=== PATIENT | female | born 1985 | race Caucasian/White ===

== ENCOUNTER 2020-03-01 07:33 | Outpatient (REF) | payer MEDICARE, MEDICAID, SELFPAY ==
[2020-03-01 08:48] LABS: Basophils Percent Auto 0.7 % (0-2); Eosinophils Absolute Auto 0.1 X10*3/uL (0.0-0.4); Hematocrit 36.7 % (37-47); Mean Corpuscular HGB Conc 32.7 g/dl (31.0-35.0); Mean Corpuscular Hemoglobin 34.2 pg (27.0-33.0); Mean Corpuscular Volume 104.6 fL (80-98); Red Blood Count 3.51 X10*6/uL (4.20-5.50)
[2020-03-01 08:50] LABS: Eosinophils Percent Auto 4.1 % (0-4); Imm Gran Abs Auto 0.01 X10*3/uL (0.00-0.03); Imm Gran Pct Auto 0.3 % (0.0-0.4); Lymphocytes Absolute Auto 1.3 X10*3/uL (1.2-4.9); Lymphocytes Percent Auto 43.6 % (20-40); Mean Platelet Volume 11.2 fL (9.4-12.3); Monocytes Absolute Auto 0.4 X10*3/uL (0.1-1.2); Monocytes Percent Auto 12.4 % (2-11); Neutrophils Absolute Auto 1.1 X10*3/uL (2.0-8.3); Neutrophils Percent Auto 38.9 % (45-73); Platelet Count 112 X10*3/uL (160-400); Red Cell Distribution Width 12.2 % (11.0-16.0); White Blood Count 2.9 X10*3/uL (4.8-10.8)
[2020-03-01 08:56] LABS: MANUAL DIFF FLAG NO
[2020-03-01 09:09] LABS: Alanine Aminotransferase 11 U/L (0-31); Albumin Level 3.9 g/dL (3.5-5.0); Alkaline Phosphatase 38 U/L (39-117); Anion Gap 11 (12-20); Aspartate Amino Transferase 13 U/L (5-31); Bilirubin Direct < 0.2 mg/dL (0.0-0.5); Bilirubin Total 0.2 mg/dL (0.0-1.0); Blood Urea Nitrogen 14 mg/dL (9-16); Calcium 8.5 mg/dL (8.4-10.2); Carbon Dioxide 23 mmol/L (22-29); Chloride 111 mmol/L (96-108); Estimated Glomerular Filt Rate > 60; Glucose Random 80 mg/dL (60-115); Potassium 3.9 mmol/l (3.3-5.1); Sodium 141 mmol/L (135-145); Total Protein 6.1 g/dL (6.5-8.0)
[2020-03-01 09:47] LABS: Valproate 67.4 mcg/mL (50.0-100.0)
[2020-03-04 23:47] LABS: Smooth Muscle Antibody <20 U (<20)
== END 2020-03-01 07:34 | disposition home or self-care (01) ==
LOC: HO.LAB 07:33
PROVIDERS: Visit Provider Psychiatry & Neurology Psychiatry
DX: F31.9 Bipolar disorder, unspecified (principal)
CPT/HCPCS: 36415; 80048; 80076; 80164; 85025; 86255

== ENCOUNTER 2020-03-18 09:15 | Outpatient (REF) | payer MEDICARE, MEDICAID, SELFPAY | END 2020-03-18 09:16 | disposition home or self-care (01) | LOC: HO.LAB 09:15 | PROVIDERS: Visit Provider Internal Medicine | DX: Z20.828 Contact with and (suspected) exposure to other viral communicable diseases (principal) | CPT/HCPCS: C9803; U0003 ==

== ENCOUNTER 2020-06-28 07:09 | Outpatient (REF) | payer MEDICARE, MEDICAID, SELFPAY ==
--- NOTE | ~2020-06-28 | XR_ITS ---
EXAMINATION: THORACIC AND LUMBAR SPINE X-RAY CLINICAL INFORMATION: Low back pain COMPARISON: None TECHNIQUE: 3 views of the lumbar spine and 2 views of the thoracic spine FINDINGS: Thoracic spine: There is mild curvature of the proximal thoracic spine to the left with apex at T4. Bone alignment is otherwise normal. No fracture or dislocation is seen. Disc spaces are normal. Paraspinal soft tissues are normal. Lumbar spine: There is 2 cm anterior subluxation of L5 with respect to S1. There is an L5 pars defect. There is disc space narrowing at L5-S1. Paraspinal soft tissues are unremarkable. XR/XR thoracic spine 2V IMPRESSION: Thoracic spine: Mild curvature of the proximal thoracic spine to the left. Lumbar spine: Spondylolysis and spondylolisthesis at L5-S1, grade 2. Disc space narrowing at L5-S1.
--- NOTE | ~2020-06-28 | XR_ITS ---
EXAMINATION: THORACIC AND LUMBAR SPINE X-RAY CLINICAL INFORMATION: Low back pain COMPARISON: None TECHNIQUE: 3 views of the lumbar spine and 2 views of the thoracic spine FINDINGS: Thoracic spine: There is mild curvature of the proximal thoracic spine to the left with apex at T4. Bone alignment is otherwise normal. No fracture or dislocation is seen. Disc spaces are normal. Paraspinal soft tissues are normal. Lumbar spine: There is 2 cm anterior subluxation of L5 with respect to S1. There is an L5 pars defect. There is disc space narrowing at L5-S1. Paraspinal soft tissues are unremarkable. XR/XR lumbar spine 2-3V IMPRESSION: Thoracic spine: Mild curvature of the proximal thoracic spine to the left. Lumbar spine: Spondylolysis and spondylolisthesis at L5-S1, grade 2. Disc space narrowing at L5-S1.
[2020-06-28 08:24] LABS: Hematocrit 39.1 % (37-47); Hemoglobin 12.4 g/dl (12.0-16.0); Mean Corpuscular HGB Conc 31.7 g/dl (31.0-35.0); Mean Corpuscular Hemoglobin 33.2 pg (27.0-33.0); Mean Corpuscular Volume 104.5 fL (80-98); Mean Platelet Volume 10.7 fL (9.4-12.3); Platelet Count 129 X10*3/uL (160-400); Red Blood Count 3.74 X10*6/uL (4.20-5.50); Red Cell Distribution Width 12.2 % (11.0-16.0); White Blood Count 3.2 X10*3/uL (4.8-10.8)
[2020-06-28 09:37] LABS: Alanine Aminotransferase 13 U/L (0-31); Albumin Level 4.2 g/dL (3.5-5.0); Alkaline Phosphatase 47 U/L (39-117); Anion Gap 11 (12-20); Aspartate Amino Transferase 15 U/L (5-31); Bilirubin Total 0.3 mg/dL (0.0-1.0); Blood Urea Nitrogen 15 mg/dL (9-16); Calcium 8.6 mg/dL (8.4-10.2); Carbon Dioxide 23 mmol/L (22-29); Chloride 113 mmol/L (96-108); Cholesterol 146 mg/dL; Estimated Glomerular Filt Rate > 60; Glucose Fasting 74 mg/dL (60-99); HDL Cholesterol 60 mg/dL; LDL Cholesterol Calculated 74 mg/dl; Potassium 4.1 mmol/L (3.3-5.1); Sodium 143 mmol/L (135-145); Total Protein 6.6 g/dL (6.5-8.0); Triglycerides 60 mg/dL
[2020-06-28 10:01] LABS: TSH reflex Free T4 1.89 uIU/mL (0.32-4.0)
== END 2020-06-28 07:10 | disposition home or self-care (01) ==
LOC: HO.LAB 07:09
PROVIDERS: PCP Physician Assistant; Visit Provider Physician Assistant
DX: I10 Essential (primary) hypertension (principal); M54.6 Pain in thoracic spine; M54.5 Low back pain; Z13.220 Encounter for screening for lipoid disorders; Z13.29 Encounter for screening for other suspected endocrine disorder; Z13.1 Encounter for screening for diabetes mellitus
CPT/HCPCS: 36415; 72070; 72100; 80053; 80061; 84443; 85027

== ENCOUNTER 2021-12-01 09:08 | Outpatient (REF) | payer MEDICARE, MEDICAID, SELFPAY ==
[2021-12-01 09:38] LABS: Hematocrit 40.7 % (37.0-47.0); Hemoglobin 13.4 g/dl (12.0-16.0); Mean Corpuscular HGB Conc 32.9 g/dl (31.0-35.0); Mean Corpuscular Hemoglobin 33.5 pg (27.0-33.0); Mean Corpuscular Volume 101.8 fL (80.0-98.0); Platelet Count 126 X10*3/uL (160-400); Red Cell Distribution Width 11.9 % (11.0-16.0); White Blood Count 3.3 X10*3/uL (4.8-10.8)
[2021-12-01 10:09] LABS: Alanine Aminotransferase 11 U/L (0-31); Albumin Level 3.9 g/dL (3.5-5.0); Alkaline Phosphatase 36 U/L (39-117); Anion Gap 13 (12-20); Aspartate Amino Transferase 15 U/L (5-31); Bilirubin Total 0.2 mg/dL (0.0-1.0); Blood Urea Nitrogen 14 mg/dL (9-16); Calcium 8.5 mg/dL (8.4-10.2); Carbon Dioxide 21 mmol/L (22-29); Chloride 113 mmol/L (96-108); Estimated Glomerular Filt Rate > 60; Glucose Fasting 80 mg/dL (60-99); Sodium 143 mmol/L (135-145); Total Protein 6.6 g/dL (6.5-8.0)
[2021-12-01 10:37] LABS: TSH reflex Free T4 2.15 uIU/mL (0.32-4.0)
== END 2021-12-01 09:09 | disposition home or self-care (01) ==
LOC: HO.LAB 09:08
PROVIDERS: PCP Physician Assistant; Visit Provider Physician Assistant
DX: Z13.29 Encounter for screening for other suspected endocrine disorder (principal)
CPT/HCPCS: 36415; 80053; 84443; 85027

== ENCOUNTER 2022-11-16 11:21 | Outpatient (AMB) | payer MEDICARE, MEDICAID, SELFPAY ==
[2022-11-16 11:28] VITALS: BP 90/56; PULSE 76; O2SAT 98; BMI 22.9
--- NOTE | 2022-11-16 11:28 | A.OFFPC_ITS ---
Vital Signs 11/16/22 11:28 Height 5 ft 3.78 in Weight 132 lb 8 oz BMI 22.9 BP 90/56 L Blood Pressure Location Lt brachial Position Sitting Pulse 76 Pulse Source Pulse Oximeter Pulse Oximetry (%) 98 Oxygen Delivery Method Room Air Intake Visit Reasons: PE Intake Note: Patient is here today for a physical. Consumer Safety Inspector Required: No Accompanied by: Self / Same As Patient Allergies No Known Allergies [No Known Allergies*] Allergy (Verified 11/16/22 11:41) Medication List - Last Reconciled 11/16/22 by Gorge Boykin PA-C divalproex ER 1,000 mg PO BEDTIME escitalopram oxalate 10 mg PO DAILY PRN lamotrigine 200 mg PO BID norethindrone-ethin estradiol 1-35 mg-mcg 1 tab PO DAILY pantoprazole 40 mg PO DAILY 90 days topiramate mg PO topiramate 200 mg PO BID trazodone 100 mg PO BEDTIME PRN ziprasidone HCl 60 mg PO BID Tobacco use date assessed: 11/16/22 Dental Screening Dental Screen Date: 11/16/22 Did you have a dental visit in the last 12 months?: Yes Did you have a dental problem in the last 6 months where you did not have access to dental care?: No Was dental information given to patient?: Patient has dentist HPI PE HPI Details Patient is a 36-year-old female here today for for annual physical. ? Pmhx? Sz disorder , Bipolar disorder, GERD, spondylosis of lumbar spine. .. learing disability: Continues to have forensic social worker coming to home. Mother is very supportive. .. Sz disorder: Sees [facility] Neurologist ( Dr de la torre),? has not had a seizure in 5 years. Continues on multiple antiseizure medications. [facility] we like PCP now to prescriber seizure medications and continue following divalproex level. .. Bipolar disorder: Is seeing a therapist Weekly, was seeing Dr Webb in [place]. Family reports patient has mood has been very stable with mood stabilization medication. .. 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 .. Vaccine:? Up-to-date with tetanus, UTD with COVID Vaccine.? ?Declines flu vaccine [facility] Medical History Bunion of great toe of left foot Family History Mother Lung cancer Social History Housing: House Alcohol intake: never Patient Tobacco Use Status: Never used Tobacco e-Cigarette/Vaping Use: Never Used service: No Current occupational status: disabled Current occupation: [employer] Cognitive needs: No Hearing needs: No Vision needs: Yes Questionnaire PHQ-9 Over the last 2 weeks, how often have you been bothered by any of the following problems? 1. Little interest or pleasure in doing things: not at all 2. Feeling down, depressed, or hopeless: not at all 3. Trouble falling or staying asleep, or sleeping too much: not at all 4. Feeling tired or having little energy: not at all 5. Poor appetite or overeating: not at all 6. Feeling bad about yourself - or that you are a failure or have let yourself or your family down: not at all 7. Trouble concentrating on things, such as reading the newspaper or watching television: not at all 8. Moving or speaking so slowly that other people could have noticed. Or the opposite - being so fidgety or restless that you have been moving around a lot more than usual: not at all 9. Thoughts that you would be better off or of hurting yourself in some way: not at all Total score: 0 Depression Screening Interpretation: Negative 11067 - PHQ-9 Billing: Yes Source: Developed by Drs. Abel Roman, Rhona Villa, Moe Orozco and colleagues, with an educational sharda from [facility]. Thrive Questionnaire Date Thrive assessed: 11/16/22 I am a: Patient What is your living situation today?: I have a steady place to live Within the past 12 months, did the food you bought not last and you didn't have the money to get more?: Never true Within the past 12 months, did you worry whether your food would run out before you got money to buy more?: Never true Do you have trouble paying for medicines?: No Do you have trouble getting transportation to medical appointments?: No Do you have trouble paying your heating and electricity bill?: No Do you have trouble taking care of your child, family member or friend?: No Do you have trouble with day-to-day activities such as bathing, preparing meals, shopping, managing finances, etc.?: No Are you currently unemployed and looking for a job?: No Are you interested in more education?: No Please select the resources that you would like help with: None Currently or been in a relationship where the following occur: no concerns reported AUDIT C Alcohol Use Questionnaire (AUDIT-C) 1. How often do you have a drink containing alcohol?: Never 3. How often do you have six or more drinks on one occasion?: Never Total Score: 0 AHSAN-7 AMB Questionnaire AHSAN-7 Date AHSAN - 7 assessed: 11/16/22 Feeling nervous, anxious, or on edge: 0 = Not at all Not being able to stop or control worryin = Not at all Worrying too much about different things: 0 = Not at all Trouble relaxin = Not at all Being so restless that it is hard to sit still: 0 = Not at all Becoming easily annoyed or irritable: 0 = Not at all Feeling afraid as if something awful might happen: 0 = Not at all Total AHSAN-7 score (0-4 normal; 5-9 mild; 10-14 moderate; 15-21 severe): 0 Source: Developed by Drs. Abel Roman, Rhona Villa, Moe Orozco and colleagues, with an educational sharda from [facility]. AHSAN-7 Assessment Billing AHSAN-7 Assessment Tool: AHSAN-7 Assessment 45074 Review of Systems Const Denies body aches, Denies chills, Denies excessive sweating, Denies fatigue, Denies fever(s) and Denies headache(s) Eyes Denies blurry vision ENT Denies dysphagia, Denies vertigo, Denies dizziness, Denies headache(s), Denies hearing loss and Denies tinnitus Card Denies chest pain, Denies chest pain with activity, Denies syncope, Denies irregular heart rhythm and Denies dyspnea Resp Denies chest congestion, Denies cough, Denies hemoptysis, Denies dyspnea and Denies wheezing GI Denies abdominal pain, Denies melena, Denies hematochezia, Denies coffee ground emesis, Denies dysphagia, Denies diarrhea, Denies nausea and Denies vomiting Denies urinary frequency, Denies dysuria, Denies urinary hesitancy and Denies urinary urgency Musc Denies arthralgias, Denies limited range of motion, Denies muscle cramps and Denies muscle weakness Skin/Breast Denies rash and Denies skin ulcer Neuro Denies Abnormal speech present, Denies confusion, Denies vertigo, Denies dizziness, Denies syncope, Denies headache(s), Denies memory loss and Denies seizure-like activity Psych Denies anxiety, Denies confusion, Denies depression, Denies memory loss, Denies panic attacks and Denies paranoia Endo Denies excessive sweating, Denies fatigue, Denies flushing, Denies polydipsia and Denies polyuria Aller/Immun Denies wheezing Physical exam (Primary Care) Vital Signs: Last Vital Signs Pulse 76 11/16/22 11:28 BP 90/56 L 11/16/22 11:28 Pulse Ox 98 11/16/22 11:28 Oxygen Delivery Method Room Air 11/16/22 11:28 BMI result Body Mass Index 22.9 Tobacco/Smoking Status: Tobacco use Status Tobacco use date assessed 11/16/22 11/16/22 11:30 Patient Tobacco Use Status Never used Tobacco 11/16/22 11:30 e-Cigarette/Vaping Use Never Used 11/16/22 11:30 PHQ-9: PHQ-9 Score PHQ-9: Total score 0 11/16/22 11:46 Depression Screening Interpretation: Negative Thrive Assessment: Date of Thrive Assessment Date Thrive assessed 11/16/22 11/16/22 11:40 Currently or been in a relationship where the following occur: no concerns reported Const General: cooperative, comfortable, no acute distress, alert and awake; No confusion Orientation/consciousness: oriented to person, oriented to place, patient oriented x3 and No confusion HENMT Head: Yes normocephalic Ears: external ears normal and TM's normal bilaterally Face and sinus: No sinus tenderness Mouth: Normal oral and palatal mucosa present and tongue normal Teeth and gingiva: dentition normal and gingiva normal Throat: Yes posterior oropharynx normal, Yes tonsils normal and Yes uvula midli ne Eyes Conjunctivae: conjunctivae normal Sclerae: sclerae normal Pupils: Equal, round and reactive pupils present EOM: EOMs intact bilaterally Direct Ophthalmoscopy: No no photophobia Neck Neck: Yes no lymphadenopathy, No tender and Yes no JVD Thyroid: Thyroid normal Carotids: no bruits Chest Chest palpation & inspection: no tenderness Resp Effort & Inspection: normal respiratory effort, no audible wheezes, not labored and no stridor Auscultation: no crackles, no rales, no rhonchi and no wheezes Cardio Jugular venous distension: no JVD Rate: regular rate, not bradycardic and not tachycardic Rhythm: regular rhythm Bruits: no carotid bruits Peripheral pulses: Peripheral pulses 2+ throughout GI Inspection: Yes normal to inspection, No abdominal wall ecchymosis and No visible herniation Palpation (GI): Soft to palpation, nontender, no guarding, not rigid and No hepatosplenomegaly present Auscultation: normoactive bowel sounds General: Yes no CVA tenderness Back/Spine/Pelvis Back: no CVA tenderness and No back tenderness Cervical Spine: cervical ROM normal Thoracic/Lumbar Spine: thoracic and lumbar spine normal to inspection, straight leg raise negative bilaterally, No thoraco-lumbar ROM limited and No lumbar spinal tenderness Skin Lesions: no lesions Rashes: no rashes Wounds: no wounds Neuro General: oriented to person, oriented to place, patient oriented x3, CN's II-XI intact bilaterally and No confusion Cranial nerves: Yes Equal, round and reactive pupils present and Yes Normal accommodation reflex present Cognition (Neuro): normal cognition Speech: No Abnormal speech present Gait exam (Neuro): Normal gait present Motor exam (neuro): 5/5 motor strength present throughout Extrem Right upper extremity: full ROM; no cyanosis Left upper extremity: full ROM; no cyanosis Right lower extremity: no edema Left lower extremity: no edema Psych Appearance: grossly normal Mental Status: mental status grossly normal Affect: normal affect Attitude: cooperative Thought process: Normal thought process present Assessment and Plan Assessment & Plan (1) Annual physical exam: Code(s): Z00.00 - Encounter for general adult medical examination without abnormal findings (2) Seizure disorder: Code(s): G40.909 - Epilepsy, unspecified, not intractable, without status epilepticus Plan: Patient followed by a neurologist though has not had seizure over 5 years. Neurology not once PCP to hand seizure medication. (3) Bipolar disorder: Code(s): F31.9 - Bipolar disorder, unspecified Qualifiers: Active/Remission status: currently active Current bipolar episode type: mixed Current episode severity: moderate Qualified Code(s): F31.62 - Bipolar disorder, current episode mixed, moderate Plan: Patient continues to see a psychiatrist who manages her SSRI therapy. Also on mood stabilization with lamotrigine and divalproex. Mother reports her mood has been stable. (4) Lumbar spine pain: Code(s): M54.5 - Low back pain Plan: As seen on lower back specialist and was told she has muscle weakness in her lower back. Has been doing physical therapy at home with some success. (5) Learning disability: Code(s): F81.9 - Developmental disorder of scholastic skills, unspecified Plan: As up as above patient lives at home with mother. Social workers come to the to work with patient. Also has physical therapy whom works a patient at home as well. Orders: Orders Comprehensive [place]. Panel Fast Today Z13.1 - Encounter for screening for diabetes mellitus Complete Blood Count no Diff Today G40.909 - Epilepsy, unspecified, not intractable, without status epilepticus Valproate Today G40.909 - Epilepsy, unspecified, not intractable, without status epilepticus Medications: Changed From ziprasidone HCl 60 mg PO BID F31.62 - Bipolar disorder, current episode mixed, moderate To ziprasidone HCl 60 mg PO BID 90 days 180 caps 2RF F31.62 - Bipolar disorder, current episode mixed, moderate From topiramate PO G40.909 - Epilepsy, unspecified, not intractable, without status epilepticus To topiramate 75 mg (3 x 25 mg) PO BID 90 days 540 tabs 2RF G40.909 - Epilepsy, unspecified, not intractable, without status epilepticus From topiramate 200 mg PO BID G40.909 - Epilepsy, unspecified, not intractable, without status epilepticus To topiramate 200 mg PO BID 90 days 180 tabs 2RF G40.909 - Epilepsy, unspecified, not intractable, without status epilepticus From lamotrigine 200 mg PO BID G40.909 - Epilepsy, unspecified, not intractable, without status epilepticus To lamotrigine 200 mg PO BID 90 days 180 tabs 2RF G40.909 - Epilepsy, unspecified, not intractable, without status epilepticus From divalproex ER 1,000 mg PO BEDTIME G40.909 - Epilepsy, unspecified, not intractable, without status epilepticus To divalproex ER 1,000 mg (2 x 500 mg) PO BEDTIME 90 days 180 tabs 2RF G40.909 - Epilepsy, unspecified, not intractable, without status epilepticus Coding Level of Care Code Est Pt Prev Care [id number]([id number]) Diagnoses Annual physical exam Z00.00 Seizure disorder G40.909 Bipolar disorder F31.62 Active/Remission status: currently active Current bipolar episode type: mixed Current episode severity: moderate Lumbar spine pain M54.5 Learning disability F81.9 Additional Codes AHSAN-7 Assessment Billing - AHSAN-7 Assessment Tool: HASAN-7 Assessment [id number] ([id number])
== END 2022-11-16 12:03 | disposition home or self-care (01) ==
PROVIDERS: Visit Provider Physician Assistant
DX: Z00.00 Encounter for general adult medical examination without abnormal findings (principal); G40.909 Epilepsy, unspecified, not intractable, without status epilepticus; F31.62 Bipolar disorder, current episode mixed, moderate; M54.50 Low back pain, unspecified; F81.9 Developmental disorder of scholastic skills, unspecified
CPT/HCPCS: 99395

== ENCOUNTER 2023-04-19 08:23 | Outpatient (REF) | payer MEDICARE, MEDICAID, SELFPAY ==
[2023-04-19 08:49] LABS: Hematocrit 38.3 % (37.0-47.0); Hemoglobin 12.5 g/dl (12.0-16.0); Mean Corpuscular HGB Conc 32.6 g/dl (31.0-35.0); Mean Corpuscular Hemoglobin 33.3 pg (27.0-33.0); Mean Corpuscular Volume 102.1 fL (80.0-98.0); Platelet Count 143 X10*3/uL (160-400); Red Blood Count 3.75 X10*6/uL (4.20-5.50); Red Cell Distribution Width 13.2 % (11.0-16.0); White Blood Count 3.9 X10*3/uL (4.8-10.8)
[2023-04-19 09:21] LABS: Valproate 61.7 mcg/mL (50.0-100.0)
[2023-04-19 09:26] LABS: Alanine Aminotransferase 9 U/L (0-31); Albumin Level 3.8 g/dL (3.5-5.0); Alkaline Phosphatase 42 U/L (39-117); Anion Gap 11 (12-20); Aspartate Amino Transferase 13 U/L (5-31); Bilirubin Total 0.3 mg/dL (0.0-1.0); Blood Urea Nitrogen 15 mg/dL (9-16); Calcium 8.6 mg/dL (8.4-10.2); Carbon Dioxide 21 mmol/L (22-29); Chloride 114 mmol/L (96-108); Estimated Glomerular Filt Rate > 60; Glucose Fasting 76 mg/dL (60-99); Sodium 142 mmol/L (135-145); Total Protein 6.4 g/dL (6.5-8.0)
== END 2023-04-19 08:24 | disposition home or self-care (01) ==
LOC: HO.LAB 08:23
PROVIDERS: PCP Physician Assistant; Visit Provider Physician Assistant
DX: G40.909 Epilepsy, unspecified, not intractable, without status epilepticus (principal); Z13.1 Encounter for screening for diabetes mellitus
CPT/HCPCS: 36415; 80053; 80164; 85027

== ENCOUNTER 2023-11-27 09:05 | Outpatient (AMB) | payer MEDICARE, MEDICAID, SELFPAY ==
[2023-11-27 09:06] VITALS: BP 82/52; PULSE 75; O2SAT 100; BMI 25.0
--- NOTE | 2023-11-27 09:06 | MHC.PC.OV ---
Vital Signs 11/27/23 09:06 Height 5 ft 3 in Weight 141 lb BMI 25.0 BP 82/52 L Blood Pressure Location Lt brachial Position Sitting Pulse 75 Pulse Source Pulse Oximeter Pulse Oximetry (%) 100 Oxygen Delivery Method Room Air Intake Visit Reasons: Annual Intake Note: Patient is here today for a physical. Eight Arm Operator Required: No Accompanied by: Mother Allergies No Known Allergies [No Known Allergies*] Allergy (Verified 11/27/23 09:47) Medication List - Last Reconciled 11/27/23 by Gorge Boykin PA-C divalproex ER 1,000 mg (2 x 500 mg) PO BEDTIME 90 days escitalopram oxalate 10 mg PO DAILY PRN lamotrigine 200 mg PO BID 90 days norethindrone-ethin estradiol 1-35 mg-mcg 1 tab PO DAILY pantoprazole 40 mg PO DAILY 90 days topiramate 75 mg (3 x 25 mg) PO BID 90 days topiramate 200 mg PO BID 90 days trazodone 100 mg PO BEDTIME PRN ziprasidone HCl 60 mg PO BID 90 days Tobacco use date assessed: 11/27/23 Dental Screening Dental Screen Date: 11/27/23 Did you have a dental visit in the last 12 months?: Yes Did you have a dental problem in the last 6 months where you did not have access to dental care?: No Was dental information given to patient?: Patient has dentist HPI Annual HPI Details Patient is a 37-year-old female here today for for annual physical. ? Pmhx? Sz disorder , Bipolar disorder, GERD, spondylosis of lumbar spine. .. learing disability: Continues to have social welfare research worker coming to home. Mother is very supportive. .. Lumbar spine muscular issue-- > Has seen back specialist past whom recommend physical therapy as her back issue was more muscular. Has not been able to be compliant with physical therapy. Unfortunately lives a sedentary lifestyle. She is willing to see new back specialist for possible trigger point injection to help reduce her pain. .. Sz disorder: Sees [facility] Neurologist ( Dr de la torre),? has not had a seizure in 5 years. Continues on multiple antiseizure medications. [facility] Neurology we like PCP now to prescriber seizure medications and continue following divalproex level. .. Bipolar disorder: Is seeing a therapist Weekly, was seeing Dr Dominguez in [place]. Family reports patient has mood has been very stable with mood stabilization medication. .. PSS DELIVERY PROFESSIONAL: sees PSS DELIVERY PROFESSIONAL at [place] , has gotten PAP last summer. .. Vaccine:? Up-to-date with tetanus, UTD with COVID Vaccine.? ?Declines flu vaccine [facility] Medical History Bunion of great toe of left foot Family History Mother Lung cancer Social History Housing: House Alcohol intake: never Patient Tobacco Use Status: Never used Tobacco e-Cigarette/Vaping Use: Never Used service: No Current occupational status: disabled Current occupation: [employer] Cognitive needs: No Hearing needs: No Vision needs: Yes Questionnaire PHQ-9 Over the last 2 weeks, how often have you been bothered by any of the following problems? 1. Little interest or pleasure in doing things: not at all 2. Feeling down, depressed, or hopeless: not at all 3. Trouble falling or staying asleep, or sleeping too much: not at all 4. Feeling tired or having little energy: not at all 5. Poor appetite or overeating: not at all 6. Feeling bad about yourself - or that you are a failure or have let yourself or your family down: not at all 7. Trouble concentrating on things, such as reading the newspaper or watching television: not at all 8. Moving or speaking so slowly that other people could have noticed. Or the opposite - being so fidgety or restless that you have been moving around a lot more than usual: not at all 9. Thoughts that you would be better off or of hurting yourself in some way: not at all Total score: 0 Depression Screening Interpretation: Negative Depression Screening Done: Yes 48832 - PHQ-9 Billing: Yes Source: Developed by Drs. Abel Roman, Rhona Villa, Moe Orozco and colleagues, with an educational sharda from [employer]. Thrive Questionnaire Date Thrive assessed: 11/27/23 I am a: Parent/Caregiver What is your living situation today?: I have a steady place to live Within the past 12 months, did the food you bought not last and you didn't have the money to get more?: Never true Within the past 12 months, did you worry whether your food would run out before you got money to buy more?: Never true Do you have trouble paying for medicines?: No Do you have trouble getting transportation to medical appointments?: No Do you have trouble paying your heating and electricity bill?: No Do you have trouble taking care of your child, family member or friend?: No Do you have trouble with day-to-day activities such as bathing, preparing meals, shopping, managing finances, etc.?: Yes Are you currently unemployed and looking for a job?: I choose not to answer this question Are you interested in more education?: No Please select the resources that you would like help with: None Currently or been in a relationship where the following occur: No concerns reported THRIVE Score: 0 AUDIT C Alcohol Use Questionnaire (AUDIT-C) 1. How often do you have a drink containing alcohol?: Never 3. How often do you have six or more drinks on one occasion?: Never Total Score: 0 AHSAN-7 AMB Questionnaire AHSAN-7 Date AHSAN - 7 assessed: 11/27/23 Feeling nervous, anxious, or on edge: 0 = Not at all Not being able to stop or control worryin = Not at all Worrying too much about different things: 0 = Not at all Trouble relaxin = Not at all Being so restless that it is hard to sit still: 0 = Not at all Becoming easily annoyed or irritable: 0 = Not at all Feeling afraid as if something awful might happen: 0 = Not at all Total AHSAN-7 score (0-4 normal; 5-9 mild; 10-14 moderate; 15-21 severe): 0 Source: Developed by Drs. Abel Roman, Rhona Villa, Moe Orozco and colleagues, with an educational sharda from [employer]. AHSAN-7 Assessment Billing AHSAN-7 Assessment Tool: AHSAN-7 Assessment 35502 Review of Systems Const Denies body aches, Denies chills, Denies excessive sweating, Denies fatigue, Denies fever(s) and Denies headache(s) Eyes Denies blurry vision ENT Denies dysphagia, Denies vertigo, Denies dizziness, Denies headache(s), Denies hearing loss and Denies tinnitus Card Denies chest pain, Denies chest pain with activity, Denies syncope, Denies irregular heart rhythm and Denies dyspnea Resp Denies chest congestion, Denies cough, Denies hemoptysis, Denies dyspnea and Denies wheezing GI Denies abdominal pain, Denies melena, Denies hematochezia, Denies coffee ground emesis, Denies dysphagia, Denies diarrhea, Denies nausea and Denies vomiting Denies urinary frequency, Denies dysuria, Denies urinary hesitancy and Denies urinary urgency Musc Denies arthralgias, Denies limited range of motion, Denies muscle cramps and Denies muscle weakness Skin/Breast Denies rash and Denies skin ulcer Neuro Denies Abnormal speech present, Denies confusion, Denies vertigo, Denies dizziness, Denies syncope, Denies headache(s), Denies memory loss and Denies seizure-like activity Psych Denies anxiety, Denies confusion, Denies depression, Denies memory loss, Denies panic attacks and Denies paranoia Endo Denies excessive sweating, Denies fatigue, Denies flushing, Denies polydipsia and Denies polyuria Aller/Immun Denies wheezing Physical exam (Primary Care) Vital Signs: Last Vital Signs Pulse 75 11/27/23 09:06 BP 82/52 L 11/27/23 09:06 Pulse Ox 100 11/27/23 09:06 Oxygen Delivery Method Room Air 11/27/23 09:06 BMI result Body Mass Index 25.0 Tobacco/Smoking Status: Tobacco use Status Tobacco use date assessed 11/27/23 11/27/23 09:18 Patient Tobacco Use Status Never used Tobacco 11/27/23 09:06 e-Cigarette/Vaping Use Never Used 11/27/23 09:06 PHQ-9: PHQ-9 Score PHQ-9: Total score 0 11/27/23 09:51 Depression Screening Interpretation: Negative Thrive Assessment: Date of Thrive Assessment Date Thrive assessed 11/27/23 11/27/23 09:18 Currently or been in a relationship where the following occur: No concerns reported Const General: cooperative, comfortable, no acute distress, alert and awake; No confusion Orientation/consciousness: oriented to person, oriented to place, patient oriented x3 and No confusion HENMT Head: Yes normocephalic Ears: external ears normal and TM's normal bilaterally Face and sinus: No sinus tenderness Mouth: Normal oral and palatal mucosa present and tongue normal Teeth and gingiva: dentition normal and gingiva normal Throat: Yes posterior oropharynx normal, Yes tonsils normal and Yes uvula midline Eyes Conjunctivae: conjunctivae normal Sclerae: sclerae normal Pupils: Equal, round and reactive pupils present EOM: EOMs intact bilaterally Direct Ophthalmoscopy: No no photophobia Neck Neck: Yes no lymphadenopathy, No tender and Yes no JVD Thyroid: Thyroid normal Carotids: no bruits Chest Chest palpation & inspection: no tenderness Resp Effort & Inspection: normal respiratory effort, no audible wheezes, not labored and no stridor Auscultation: no crackles, no rales, no rhonchi and no wheezes Cardio Jugular venous distension: no JVD Rate: regular rate, not bradycardic and not tachycardic Rhythm: regular rhythm Bruits: no carotid bruits Peripheral pulses: Peripheral pulses 2+ throughout GI Inspection: Yes normal to inspection, No abdominal wall ecchymosis and No visible herniation Palpation (GI): Soft to palpation, nontender, no guarding, not rigid and No hepatosplenomegaly present Auscultation: normoactive bowel sounds General: Yes no CVA tenderness Back/Spine/Pelvis Other: LIMITED RANGE OF MOTION OF THE LUMBAR SPINE DUE TO PAIN AND STIFFNESS. Back: no CVA tenderness and No back tenderness Cervical Spine: cervical ROM normal Thoracic/Lumbar Spine: thoracic and lumbar spine normal to inspection, straight leg raise negative bilaterally, No thoraco-lumbar ROM limited and No lumbar spinal tenderness Skin Lesions: no lesions Rashes: no rashes Wounds: no wounds Neuro General: oriented to person, oriented to place, patient oriented x3, CN's II-XI intact bilaterally and No confusion Cranial nerves: Yes Equal, round and reactive pupils present and Yes Normal accommodation reflex present Cognition (Neuro): normal cognition Speech: No Abnormal speech present Gait exam (Neuro): Normal gait present Motor exam (neuro): 5/5 motor strength present throughout Extrem Right upper extremity: full ROM; no cyanosis Left upper extremity: full ROM; no cyanosis Right lower extremity: no edema Left lower extremity: no edema Psych Appearance: grossly normal Mental Status: mental status grossly normal Affect: normal affect Attitude: cooperative Thought process: Normal thought process present Assessment and Plan Assessment & Plan (1) Annual physical exam: Code(s): Z00.00 - Encounter for general adult medical examination without abnormal findings (2) Seizure disorder: Code(s): G40.909 - Epilepsy, unspecified, not intractable, without status epilepticus Plan: Patient followed by a neurologist though has not had seizure over 5 years. Neurology not would like PCP to hand seizure medication. Noted weight gain over the last year Will recheck Lamictal and divalproex levels. (3) Bipolar disorder: Code(s): F31.9 - Bipolar disorder, unspecified Qualifiers: Active/Remission status: currently active Current bipolar episode type: mixed Current episode severity: moderate Qualified Code(s): F31.62 - Bipolar disorder, current episode mixed, moderate Plan: Patient continues to see a psychiatrist who manages her SSRI therapy. Also on mood stabilization with lamotrigine and divalproex. Mother reports her mood has been stable. (4) Lumbar spine pain: Code(s): M54.5 - Low back pain Plan: As seen on lower back specialist and was told she has muscle weakness in her lower back. Has not been too compliant with physical therapy. Unfortunately lives a sedentary lifestyle. She is willing to try to see a back specialist again to inquire about in injection to reduce her pain. (5) Learning disability: Code(s): F81.9 - Developmental disorder of scholastic skills, unspecified Plan: As up as above patient lives at home with mother. Social workers come to the to work with patient. Also has physical therapy whom works a patient at home as well. Orders: Orders Valproate 11/27/23 G40.909 - Epilepsy, unspecified, not intractable, without status epilepticus Complete Blood Count no Diff 11/27/23 Z13.1 - Encounter for screening for diabetes mellitus Lamotrigine Lamictal 11/27/23 G40.909 - Epilepsy, unspecified, not intractable, without status epilepticus Comprehensive [place]. Panel Fast 11/27/23 Z13.1 - Encounter for screening for diabetes mellitus Referrals Physiatry Referral M54.5 - Low back pain Coding Level of Care Code Est Pt Prev Care 18-39y(18007) Diagnoses Annual physical exam Z00.00 Seizure disorder G40.909 Bipolar disorder, current episode mixed, moderate F31.62 Active/Remission status: currently active Current bipolar episode type: mixed Current episode severity: moderate Lumbar spine pain M54.5 Learning disability F81.9 Additional Codes AHSAN-7 Assessment Billing - AHSAN-7 Assessment Tool: AHSAN-7 Assessment 46991 ([id number])
== END 2023-11-27 10:09 | disposition home or self-care (01) ==
PROVIDERS: PCP Physician Assistant; Visit Provider Physician Assistant
DX: Z00.00 Encounter for general adult medical examination without abnormal findings (principal); G40.909 Epilepsy, unspecified, not intractable, without status epilepticus; F31.62 Bipolar disorder, current episode mixed, moderate; M54.50 Low back pain, unspecified; F81.9 Developmental disorder of scholastic skills, unspecified
CPT/HCPCS: 99395

== ENCOUNTER 2024-01-01 07:26 | Outpatient (REF) | payer MEDICARE, MEDICAID, SELFPAY ==
[2024-01-01 09:04] LABS: Valproate 44.7 mcg/mL (50.0-100.0)
[2024-01-01 09:12] LABS: Alanine Aminotransferase 11 U/L (0-31); Alkaline Phosphatase 51 U/L (39-117); Anion Gap 11 (12-20); Aspartate Amino Transferase 13 U/L (5-31); Bilirubin Direct < 0.2 mg/dL (0.0-0.5); Bilirubin Total 0.2 mg/dL (0.0-1.0); Blood Urea Nitrogen 18 mg/dL (9-16); Calcium 8.4 mg/dL (8.4-10.2); Carbon Dioxide 22 mmol/L (22-29); Chloride 116 mmol/L (96-108); Estimated Glomerular Filt Rate > 60; Glucose Random 87 mg/dL (60-115); Potassium 3.8 mmol/L (3.3-5.1); Sodium 145 mmol/L (135-145); Total Protein 6.5 g/dL (6.5-8.0)
== END 2024-01-01 07:27 | disposition home or self-care (01) ==
LOC: HO.LAB 07:26
PROVIDERS: PCP Physician Assistant; Visit Provider Physician Assistant
DX: F31.9 Bipolar disorder, unspecified (principal); F73 Profound intellectual disabilities; Z79.899 Other long term (current) drug therapy
CPT/HCPCS: 36415; 80053; 80164; 82248

== ENCOUNTER 2024-03-03 07:33 | Outpatient (REF) | payer MEDICARE, MEDICAID, SELFPAY ==
--- NOTE | ~2024-03-03 | XR_ITS ---
EXAMINATION: X-RAY LUMBAR SPINE CLINICAL INDICATION: Evaluate for instability. COMPARISON: 06/28/2020 TECHNIQUE: 6 views of the lumbar spine FINDINGS: Dextroscoliosis of the lumbar spine. Degenerative changes of bilateral sacroiliac joints. Facet arthritis at the lumbosacral junction. Grade 3 anterolisthesis of L5 on S1 reduces with flexion and inceases with extension. Redemonstration of L5 pars defects. Loss of disc space height at L5-S1. XR/XR lumbar spine 4V min IMPRESSION: Grade 2 anterolisthesis of L5 on S1 persists with flexion and extension. Redemonstration of L5 pars defect. Loss of disc space height at L5-S1. Electronically signed by: Deedee Amin MD 03/03/2024 10:14 AM CESAR GARCIA
== END 2024-03-03 07:34 | disposition home or self-care (01) ==
LOC: HO.XRAY 07:33
PROVIDERS: PCP Physician Assistant; Visit Provider Physical Medicine & Rehabilitation
DX: M47.816 Spondylosis without myelopathy or radiculopathy, lumbar region (principal)
CPT/HCPCS: 72110

== ENCOUNTER 2024-04-27 19:10 | Outpatient (REF) | payer MEDICARE, MEDICAID, SELFPAY ==
--- NOTE | ~2024-04-27 | MR_ITS ---
CLINICAL HISTORY: PAIN MRI lumbar spine without contrast Comparison: None Findings: 1.2 cm anterolisthesis L5-X0lchspyw definite canal stenosis. No axial images were obtained parallel to disc. Severe bilateral neural foraminal narrowing noted. Multilevel mild facet hypertrophy. No other significant disc disease or canal stenosis. Bony alignment normal above the L5 level. No acute bony signal abnormalities. Incidental sacral perineural cysts. Impression: L5-S1 anterolisthesis with severe bilateral neural foraminal narrowing This document has been electronically signed by: Sahil Julian MD on 04/27/2024 20:52:41
== END 2024-04-27 19:11 | disposition home or self-care (01) ==
LOC: HO.MRI 19:10
PROVIDERS: PCP Physician Assistant; Visit Provider Student in an Organized Health Care Education/Training Program
DX: M43.17 Spondylolisthesis, lumbosacral region (principal)
CPT/HCPCS: 72148

== ENCOUNTER → 2024-04-27 19:18 | Outpatient (BNV) | payer MEDICARE, MEDICAID, SELFPAY | PROVIDERS: PCP Physician Assistant; Visit Provider Radiology Diagnostic Radiology | DX: M54.50 Low back pain, unspecified (principal) | CPT/HCPCS: 72148 ==

== ENCOUNTER 2024-05-09 09:27 | Outpatient (AMB) | payer MEDICARE, MEDICAID, SELFPAY ==
--- OUTSIDE RECORDS SUMMARY | 2024-05-09 09:52 | XMS_ITS | Encounter Summary ---
Author Organization [facility] Address [address] [place] [address] Care Team Providers Care Crime Data Specialist Name Role Phone Destiny Gar MD Primary Care Provider Unavailable Encounter Details Date Type Department Care Team Description 07/02/2012 Medical Anthropologist Report Medical Records [address] [place] [address] Jennifer Romo NP Social History Tobacco Use Types Packs/Day Years Used Date Smoking Tobacco: Never Smokeless Tobacco: Never Alcohol Use Standard Drinks/Week Comments No 0 (1 standard drink = 0.6 oz pur e alcohol) Sex Assigned at Date Recorded Not on file Job Start Date Occupation Industry Not on file Not on file Not on file documented as of this encounter Plan of Treatment Not on file documented as of this encounter Visit Diagnoses Not on filedocumented in this encounter Care Teams Crime Data Specialist Relationship Specialty Start Date End Date Destiny Gar MD PCP - General 01/21/07 documented as of this encounter
--- OUTSIDE RECORDS SUMMARY | 2024-05-09 09:52 | XMS_ITS | Encounter Summary ---
Author Organization [facility] Address [address] [place] [address] Care Team Providers Care Dental Hygiene Teacher Name Role Phone Martha-Destiny Reece MD Primary Care Provider Unavailable Reason for Visit * Reason Onset Date Comments refill request 05/18/2017 Encounter Details Date Type Department Care Team Description 05/18/2017 Refill OBGYN - [place] [address] [place] [address] Janelle Day MD refill request Social History Tobacco Use Types Packs/Day Years Used Date Smoking Tobacco: Never Smokeless Tobacco: Never Alcohol Use Standard Drinks/Week Comments No 0 (1 standard drink = 0.6 oz pur e alcohol) Sex Assigned at Date Recorded Not on file Job Start Date Occupation Industry Not on file Not on file Not on file documented as of this encounter Miscellaneous Notes * Telephone Encounter - Angeles Cristobal - 05/18/2017 9:48 AM EST WHEN WAS THE PATIENTS LAST ANNUAL DRIER ATTENDANT EXAM? 07/19/2016 Does patient have an upcoming appointment? No (THE MEDICATION REQUESTED IS ON THE MED LIST ABOVE) Did you check the Pharmacy information above?: YES Indicate how soon the patient needs the script: BY THE END OF THE DAY Patient would like script to be: E-PRESCRIBED/FAXED TO PHARMACY Is the doctor here today?: NO Can the message wait until the doctor returns?: NO Has the patient been told that the prescription will not be filled until the end of the day? NO [place] / [place] / Product Type: MEDICARE [id number] documented in this encounter Plan of Treatment Not on file documented as of this encounter Visit Diagnoses Not on filedocumented in this encounter Care Teams Dental Hygiene Teacher Relationship Specialty Start Date End Date Martha-Destiny Reece MD PCP - General 01/21/07 documented as of this encounter
--- OUTSIDE RECORDS SUMMARY | 2024-05-09 09:52 | XMS_ITS | Clinical Summary ---
Author Organization [facility] Address [address] [place] [address] Care Team Providers Care Police Crime Scene Technician Name Role Phone Martha-Destiny Reece MD Primary Care Provider Unavailable Allergies No known active allergies Medications Medication Sig Dispensed Refills Start Date End Date Status TRAZODONE HCL 150 MG OR TABS 1 TABLET AT BEDTIME 0 Active topiramate (TOPAMAX) 200 MG tablet Take 2.5 Tabs by mouth 2 times daily. 0 Active topiramate (TOPAMAX) 25 MG tablet Take 25 mg by mouth 2 times daily. 0 Active ziprasidone (GEODON) 40 MG capsule Take 1 Cap by mouth daily. 0 11/29/2018 Active divalproex (DEPAKOTE) 250 MG EC tablet Take 1 Tab by mouth at bedtime. 0 11/29/2018 Active lamotrigine (LAMICTAL) 200 MG tablet Take 200 mg by mouth daily. 0 Active escitalopram (LEXAPRO) 10 MG tablet Take 10 mg by mouth daily. 0 Active PANTOPRAZOLE SODIUM OR Take by mouth. 0 Active norethindrone-ethinyl estradiol (ORTHO-NOVUM 1-35 TAB,NORTREL 1-35 TAB) 1-35 MG-MCG per tablet Take 1 Tablet by mouth daily. 84 Tablet 3 08/29/2022 Active Active Problems Problem Noted Date PTSD (post-traumatic stress disorder) Bipolar affective 12/24/2009 Seizure Disorder - followed by [facility]rology - Dr Ayala 08/01/2007 Microcephaly 08/01/2007 Premenstrual dysphoric disorder 06/14/19 08 Last Assessment & Plan: Well controlled with OCPs. Rx refilled x1 year. Anxiety- sees Dr Field 03/15/2007 Behavior disorder 03/15/2007 Immunizations Name Administration Dates Next Due DTaP 11/24/1990, 8,07/24/1986,1986,01/24/1986 HIB 11/25/1987 HPV (Gardasil) 06/15/2008 08/15/2008 Hepatitis B > 19yrs 06/19/1997,02/16/1997,1996 Influenza (> 6 Months) 12/24/2012,2011,01/05/2011,2009,03/15/2007,02/26/2006 Influenza H1N1 Pandemic Flu Vaccine 05/21/2009 MMR (Dxypqbv-Bzqqw-Trclpqe) 01/15/1997, 7 PPD-Negative Response(External) 11/24/1998,10/24,11/24/1986 Polio (OPV) 11/25/1987, 7,03/26/1986,1985 TD (STATE SUPPLIED FOR ADULT S AND CHILDREN) 09/23/1999 Tdap 07/31/2007 Varicella 09/23/1999,08/23/1999 Family History Medical History Relation Name Comments CA Breast Maternal Grandmother Diabetes Maternal Grandmother CA Lung Mother Diabetes Mother CA Ovarian Negative Hx Cervical Cancer Negative Hx Uterine Cancer Negative Hx Relation Name Status Comments Brother 1 Alive x3; twins Brother 2 Alive Father Alive Unknown history Maternal Grandfather Alive Maternal Grandmother Mother Alive DMII; lung vesna kalie - ? cancer -- smoker - Paternal Grandfather Paternal Grandmother Social History Tobacco Use Types Packs/Day Years Used Date Smoking Tobacco: Never Smokeless Tobacco: Never Alcohol Use Standard Drinks/Week Comments No 0 (1 standard drink = 0.6 oz pur e alcohol) Sex Assigned at Date Recorded Not on file Job Start Date Occupation Industry Not on file Not on file Not on file Last Filed Vital Signs Vital Sign Reading Time Taken Comments Blood Pressure 100/64 07/06/2021 1:37 PM EDT Pulse 62 07/06/2021 1:37 PM EDT Temperature 36.8 ??C (98.2 ??F) 05/31/2012 8:54 AM ES T Respiratory Rate 16 07/06/2021 1:37 PM EDT Oxygen Saturation 96% 05/17/2009 10:34 AM EST Inhaled Oxygen Concentration - - Weight 58.5 kg (129 lb) 08/29/2022 11:51 AM EDT Height 165.1 cm (5' 5 ) 08/29/2022 11:51 AM EDT Body Mass Index 21.47 08/29/2022 11:51 AM EDT Plan of Treatment Health Maintenance Due Date Last Done Comments Covid-19 Vaccine (#1) 06/01/1986 DEPRESSION SCREEN 12/24/2013 12/24/2012 (Co mpleted), 12/24/2012 CHOLESTEROL SCREENING 02/21/2015 02/21/2010 BASELINE HEALTH EXAM 18-39 06/13/201706/13, 06/06/2011, 01/05/2011, Additional history exists INFLUENZA (#1) 2023 12/24/2012, 1103/2011, 01/05/2011, Additional history exists CERVICAL CANCER SCREENING 07/06/20242021, 07/19/2016, 09/06/2012, Additional history exists DTAP/TDAP/TD (8 - Td or Tdap) 06/09/2030, 07/31/2007, 09/23/1999, Additional history exists PNEUMOCOCCAL VACCINE FOR HIG H RISK PATIENTS (#1) 2050 Care Teams Police Crime Scene Technician Relationship Specialty Start Date End Date Samson-Destiny Reece MD PCP - General 01/21/07
--- OUTSIDE RECORDS SUMMARY | 2024-05-09 09:52 | XMS_ITS | Encounter Summary ---
Author Organization [facility] Address [address] [place] [address] Care Team Providers Care Medical Services Manager Name Role Phone Destiny Gar MD Primary Care Provider Unavailable Encounter Details Date Type Department Care Team Description 03/02/2011 Tip Cementer Report Medical Records [address] [place] [address] Jennifer Romo NP Social History Tobacco Use Types Packs/Day Years Used Date Smoking Tobacco: Never Alcohol Use Standard Drinks/Week Comments [...] on filedocumented in this encounter Care Teams Medical Services Manager Relationship Specialty Start Date End Date Destiny Gar MD PCP - General 01/21/07 documented as of this encounter
--- OUTSIDE RECORDS SUMMARY | 2024-05-09 09:52 | XMS_ITS | Encounter Summary ---
Author Organization [facility] Address [address] [place] [address] Care Team Providers Care Plant Protection Supervisor Name Role Phone Martha-Destiny Reece MD Primary Care Provider Unavailable Reason for Visit * Reason Onset Date Comments refill request 05/30/2016 dr kendall Encounter Details Date Type Department Care Team Description 05/30/2016 [facility] [address] [place] [address] Cata Mariee DO refill request (dr kendall) Social History Tobacco Use Types Packs/Day Years [...] encounter Miscellaneous Notes * Telephone Encounter - Christelle Zendejas R.N. - 05/31/2016 10:20 AM EST Letter sent. * Telephone Encounter - Maria M Ramesh - 05/30/2016 9:14 AM EST Lmm c&h for pt to call * Telephone Encounter - Christelle Zendejas R.N. - 05/30/2016 9:03 AM EST Pt needs annual scheduled. * Telephone Encounter - aMria M Ramesh - 05/30/2016 8:59 AM EST WHEN WAS THE PATIENTS LAST ANNUAL MERCHANDISING COORDINATOR EXAM? 10/30/14 Does patient have an upcoming appointment? No (THE MEDICATION IS NOT ON THE MED LIST AND IS IDENTIFIED BELOW): Med name: keerthi Dosage: na # of tablets: 28 Local pharmacy with request for 30 -day supply Instructions: 1qd Did you check the pharmacy information above?: YES Indicate how soon the patient needs the script: BY THE END OF THE DAY Patient would like script to be: E-PRESCRIBED/FAXED TO PHARMACY Is the doctor here today?: YES Can the message wait until the doctor returns?: NO Has the pateint been told the prescription will not be filled until the end of the day? YES [place] / [place] / Product Type: MEDICARE [id number] documented in this encounter Plan of Treatment Not on file documented as of this encounter Visit Diagnoses Not on filedocumented in this encounter Care Teams Plant Protection Supervisor Relationship Specialty Start Date End Date [place]-Destiny Reece MD PCP - General 01/21/07 documented as of this encounter
--- OUTSIDE RECORDS SUMMARY | 2024-05-09 09:52 | XMS_ITS | Encounter Summary ---
Author Organization [facility] Address [address] [place] [address] Care Team Providers Care Instant Potato Processing Supervisor Name Role Phone Destiny Gar MD Primary Care Provider Unavailable Encounter Details Date Type Department Care Team Description 11/03/2014 Business Doc Medical Records [address] [place] [address] Abstract, Provider Social History Tobacco Use Types Packs/Day Years [...] on filedocumented in this encounter Care Teams Instant Potato Processing Supervisor Relationship Specialty Start Date End Date Destiny Gar MD PCP - General 01/21/07 documented as of this encounter
--- OUTSIDE RECORDS SUMMARY | 2024-05-09 09:52 | XMS_ITS | Encounter Summary ---
Author Organization [facility] Address [address] [place] [address] Care Team Providers Care Shop Cooper Name Role Phone Destiny Gar MD Primary Care Provider Unavailable Encounter Details Date Type Department Care Team Description 01/01/2013 Dehydrogenation Operator Head Report Medical Records [address] [place] [address] Jennifer Romo NP Social History Tobacco Use [...] on filedocumented in this encounter Care Teams Shop Cooper Relationship Specialty Start Date End Date Destiny Gar MD PCP - General 01/21/07 documented as of this encounter
--- OUTSIDE RECORDS SUMMARY | 2024-05-09 09:52 | XMS_ITS | Encounter Summary ---
Author Organization [facility] Address [address] [place] [address] Care Team Providers Care Grinding Wheel Inspector Name Role Phone Martha-Destiny Reece MD Primary Care Provider Unavailable Reason for Visit * Reason Onset Date Comments refill request 06/05/2016 sb Encounter Details Date Type Department Care Team Description 06/05/2016 Refill OBGYN - [facility] [address] [place] [address] Sindi Ramirez CNM refill request (sb) Social History Tobacco Use Types Packs/Day Years [...] encounter Miscellaneous Notes * Telephone Encounter - Maria M Keelyzay - 06/05/2016 8:40 AM EDT WHEN WAS THE PATIENTS LAST ANNUAL LEGAL ACTIVITY ADJUDICATOR EXAM? 10/30/14 Does patient have an upcoming appointment? Yes 07/19/16 (THE MEDICATION IS NOT ON THE MED LIST AND IS IDENTIFIED BELOW): Med name: balziva Dosage: na # of tablets: 28 Local [...] / [place] / Product Type: [place]ICARE [id number] documented in this encounter Plan of Treatment Not on file documented as of this encounter Visit Diagnoses Not on filedocumented in this encounter Care Teams Grinding Wheel Inspector Relationship Specialty Start Date End Date Martha-Destiny Reece MD PCP - General 01/21/07 documented as of this encounter
--- OUTSIDE RECORDS SUMMARY | 2024-05-09 09:52 | XMS_ITS | Encounter Summary ---
Author Organization [facility] Address [address] [place] [address] Care Team Providers Care Senior Compensation Consultant Name Role Phone Destiny Gar MD Primary Care Provider Unavailable Encounter Details Date Type Department Care Team Description 02/18/2014 Petroleum Analyst Report Medical Records [address] [place] [address] Jennifer Romo NP Social History Tobacco Use [...] on filedocumented in this encounter Care Teams Senior Compensation Consultant Relationship Specialty Start Date End Date Destiny Gar MD PCP - General 01/21/07 documented as of this encounter
--- OUTSIDE RECORDS SUMMARY | 2024-05-09 09:53 | XMS_ITS | Clinical Summary ---
Author Organization [facility] Address [address] [place] [address] Care Team Providers Care Calciner Feeder Name Role Phone [place]-Destniy Reece MD Primary Care Provid er Surgical History Surgery Date Site/Laterality Comments BUNIONECTOMY 2004 PROCEDURE: CO CORRJ HLX VLGS BNCTY SESMDC W/DOUBLE OSTEOTOMY; COMMENT: right foot Medical History Medical History Date Comments Behavior disorder 03/15/2007 DX:Behavior di sorder Microcephaly (CMS/HCC) 08/01/2007 DX:Microc ephaly ([facility]) Anxiety 03/15/2007 DX:Anxiety Seizure disorder (CMS/HCC) DX:Se izure disorder ([facility]); COMMENT: followed by [facility] - Dr Gardner PTSD (post-traumatic stress disorder) 12/24/2009 DX:PTSD (post-traumatic stress disorder) Bipolar affective ([facility]/HCC) 12/24/2009 DX:B ipolar affective ([facility]) Panic attacks DX:Panic attacks Family History Medical History Relation Name Comments Breast cancer Maternal Grandmother Diabetes Maternal Grandmother Diabetes Mother Lung cancer Mother Cervical cancer Neg Hx Ovarian cancer Neg Hx Uterine cancer Neg Hx Relation Name Status Comments Brother 1 [...] drink = 0.6 oz pur e alcohol) Comments Unknown Sex and Gender Information Value Date Recorded Sex Assigned at Not on file Legal Sex Female 9:57 AM EST Gender Identity Not on file Sexual Orientation Not on file Obstetrics History Last Filed Vital Signs Vital Sign Reading Time Taken Comments Blood Pressure 83/52 08/29/2022 11:51 AM EDT Pulse 75 08/29/2022 11:51 AM EDT Temperature - - Respiratory Rate - - Oxygen Saturation - - Inhaled Oxygen Concentration - - Weight 58.5 kg (129 lb) 08/29/2022 11:51 AM EDT Height 165.1 cm (5' 5 ) 08/29/2022 11:51 AM EDT Body Mass Index 21.47 08/29/2022 11:51 AM EDT Plan of Treatment Health Maintenance Due Date Last Done Comments HPV Vaccines (2 - 3-dose series) 07/13/2008 06/15/2008 DTaP,Tdap,and Td Vaccines (8 - Td or Tdap) 07/30/2017 07/31/2007, 09/23/1999, 11/24/1990, Additional history exists Depression Screening 02/26/2022 HIV Screening 02/26/2022 Hepatitis C Screening 02/26/2022 Social Influencers of Health Screening 02/26/2022 COVID-19 Vaccine ( season) 2023 Influenza Vaccine (#1) 2023 3, 01/25/2012, 01/05/2011, Additional history exists Cervical Cancer Screening: Pap Smear 07/06/2024 07/06/2021 HIB Vaccines Completed 11/25/1987 IPV Vaccines Completed 11/25/1987, 03/1987, 07/24/1986, Additional history exists MMR Vaccines Completed 01/15/1997, 02/23/1987 Hepatitis B Vaccines Completed 06/19/1997, 02/16/1997, 01/15/1997 Varicella Vaccines Completed 09/23/1999, 08/23/1999 Hepatitis A Vaccines Aged Out No long er eligible based on patient's age to complete this topic Meningococcal ACWY Vaccine Aged Out N o longer eligible based on patient's age to complete this topic Meningococcal B Vacine Aged Out No lo nger eligible based on patient's age to complete this topic Pneumococcal Vaccine: Pediatrics (0 to 5 Years) and At-Risk Patients (6 to 64 Years) Aged Out No longer eligible based on patient's age to complete this topic RSV Immunization Patients Under 20 months Aged Out No longer eligible based on patient's age to complete this topic Procedures Procedure Name Priority Date/Time Associated Diagnosis Comments PAP SMEAR Routine 07/06/2021 from Last 3 Months or Most Recently Relevant to Health Maintenance Results * Pap smear (07/06/2021) 07/06/2021 Narrative HISTORICAL TESTING LAB RESULTING AGENCY - 07/21/2021 7:35 AM EDT [id number] THINPREP PAP, IMAGED: NEGATIVE FOR SQUAMOUS INTRAEPITHELIAL LESION AND MALIGNANCY. ABUNDANT RED BLOOD CELLS ARE PRESENT. NOTE: THE PAP TEST IS A SCREENING TEST WITH AN INHERENT FALSE NEGATIVE RATE. AUTOMATED PRESCREENING OF ALL LIQUID BASED SPECIMENS IS PERFORMED BY THE THINPREP IMAGING SYSTEM UNLESS OTHERWISE STATED. THOMAS NIELSEN(ASCP) (CASE ELECTRONICALLY SIGNED 07 20 2021) RESULT OF APTIMA HIGH RISK HPV ASSAY: HIGH RISK HPV: ??NEGATIVE (SEROTYPES 16,18,31,33,35,39,45,51,52,56,58,59,66,68) COMPLETED ON 2021-07-07 ADEQUACY: SATISFACTORY ENDOCERVICAL/TRANSFORMATION ZONE COMPONENT PRESENT. SOURCE: THINPREP PAP HPV ANY DX: ??REFLEX 16 AND 18, CERVICAL, IMAGED CLINICAL INFORMATION: HPV ANY DIAGNOSIS. PAP HX NEGATIVE, [Z12.4, Z01.419] [facility] CYTOLOGY ORDERABLES Final Result HISTORICAL TESTING LAB RESULTING AGENCY from Last 3 Months or Most Recently Relevant to Health Maintenance Care Teams Calciner Feeder Relationship Specialty Start Date End Date Martha-Destiny Reece MD PCP - General 01/21/07
--- OUTSIDE RECORDS SUMMARY | 2024-05-09 09:53 | XMS_ITS | Encounter Summary ---
Author Organization [facility] Address [address] [place] [address] Care Team Providers Care Painter Tumbling Barrel Name Role Phone Destiny Gar MD Primary Care Provider Unavailable Reason for Visit * Reason Onset Date Comments Diarrhea 05/06/2013 Encounter Details Date Type Department Care Team Description 05/06/2013 Telephone Adult Medicine - [address] [address] Destiny Gar MD Diarrhea Social History Tobacco Use Types Packs/Day Years [...] encounter Miscellaneous Notes * Telephone Encounter - Klaudia Staley M.A. - 05/06/2013 12:51 PM EST FYI only * Telephone Encounter - Rowena Domingo - 05/06/2013 12:17 PM EST Symptoms patient is presenting: pt is telling nurse at her work that she is vomiting and has diarrhea and fever-- pt has ongoing hx of these symptoms, pcp is aware of this.. Caregiver is calling about this-- work nurse contacted her.. Caregiver states that pt does have these symptoms and is lying to get out work. They would would just like pcp aware of this-- will Discuss with pcp at visit 05/08 How long has patient had these symptoms?: PCP: Destiny Gar [place] Product Type: MEDICARE [id number] documented in this encounter Plan of Treatment Not on file documented as of this encounter Visit Diagnoses Not on filedocumented in this encounter Care Teams Painter Tumbling Barrel Relationship Specialty Start Date End Date Destiny Gar MD PCP - General 01/21/07 documented as of this encounter
[2024-05-09 10:16] VITALS: BMI 24.8
--- NOTE | 2024-05-09 10:16 | HO.SPINEOV ---
Vital Signs 05/09/24 10:16 Height 5 ft 3 in Weight 140 lb BMI 24.8 Intake Visit Reasons: back pain Intake Note: Ms. Mariscal is here today c/o low back pain. Diamond Grader Required: No Allergies No Known Allergies [No Known Allergies*] Allergy (Verified 05/09/24 10:16) Physical Exam Vital Signs: BMI result Body Mass Index 24.8 Assessment & Plan Assessment & Plan (1) Spondylolisthesis, lumbar region: Code(s): M43.16 - Spondylolisthesis, lumbar region Category: Medical Plan Dear Andrei, Thank you for referring Ms Mariscal to our office today. 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 The pain has been getting steadily more intense over time. She is having a lot of difficulty sleeping, tremendous difficulty with bending activities or standing/walking for any length of time. She has the mental capacity of about an 8- 10-year-old child per her mother who is her medical transcription radiology. She can not articulate things very well but her mother notices throughout the day that she is constantly uncomfortable. She tried physical therapy but because of her attention span had very limited ability to participate. Her mother has been getting her to do the exercises 2 to 3 times a day for the last 3 or 4 years but it has significantly strain the relationship because it has become too painful for the patient to participate in the exercises. They have tried some vecp-nxy-irlwlkt pain medications like Tylenol and Motrin but they are limited because of the amount of seizure medication she takes on how much they can give her. She has not done any injections yet. She underwent an MRI and x-rays showing severe disc collapse at L5-S1 with pars defect and bilateral neuroforaminal stenosis grade 2-3 spondylolisthesis. She was sent for an evaluation. PMH: As above she had traumatic brain injury at , she has the functional level of about an 8-year-old, history of seizure disorder, she has been very stable on her medications for some time without a grand mal seizure now for least 10 years. Her mother thinks she does have petite mal seizures at times because she will find her excessively sleepy periodically. But in general she is very well controlled. History of bipolar, anxiety, bunion surgery. No history of heart disease, pulmonary disease, liver disease, kidney disorders, bleeding, blood clots, major abdominal surgery Social hx: She does not smoke, drink or use any recreational drugs Medications: Depakote, lamotrigine, Topamax, pantoprazole, escitalopram, ziprasidone Allergies: None Physical exam: She is awake alert cooperative able to stand up out of a chair walk down the hallway slightly antalgic gait, mild weakness of her left dorsiflexion which I would rate as 4-5. Reflexes are normal in the upper and lower extremities. Imaging review: Lumbar MRI and x-ray done here at [facility] reviewed with Dr. Griggs and this shows a grade 2-3 spondylolisthesis at L5-S1 with pars defects and severe bilateral neuroforaminal narrowing. There does seem to be some worsening of the position between lying down to standing up x-rays. Impression: 38-year-old female history of mental retardation, seizure disorder, presents with severe back pain with bilateral lower extremity pain going on now for 5 years getting steadily worse. As above the patient's quality of life has been suffering significantly. She has been doing therapy now for years with no relief. She was sent for surgical evaluation after MRI showed severe disc collapse and the grade 2-[address] Griggs reviewed the imaging with me, although she does have a steep angle of the disc space, he does feel she would be a good candidate for an anterior lumbar interbody fusion with posterior instrumentation. I sent the images to will also thinks it would be doable surgery through the anterior approach as well. I will arrange a preoperative visit with him. They would like to do the surgery sometime after their vacation in July. We will arrange and coordinate the surgery with office after the visit. I told the mother we can let her stay overnight with her daughter after surgery as that would probably be the easiest thing for all involved. She could go home the day after surgery assuming no issues. Pt was given risk and benefits of surgery including but not limited to infection, hematoma , nerve injury,durotomy, weakness,bowel/bladder injury, persistent pain, as well as the option to continue with conservative treatment and patient wishes to proceed with surgery. . All questions were answered to the best of our ability. If there is anything about this patients medical history that we have overlooked or concerns you have about us proceeding with surgery we would appreciate any input you can offer. Thank you for allowing us to care for your patient. The total time spent with this visit with this patient was 45 minutes reviewing history, physical exam, lumbar imaging review, and implementation of treatment plan or further diagnostic testing Raul Griggs MD,PhD [facility] Coding Level of Care Code New Pt Level 4 (53132) Diagnoses Spondylolisthesis, lumbar region M43.16
== END 2024-05-09 11:32 | disposition home or self-care (01) ==
PROVIDERS: PCP Physician Assistant; Referring Provider Physical Medicine & Rehabilitation; Visit Provider Physician Assistant
DX: M43.16 Spondylolisthesis, lumbar region (principal)
CPT/HCPCS: 99204

== ENCOUNTER → 2024-05-09 09:27 | Outpatient (BNVA) | payer MEDICARE, MEDICAID, SELFPAY | PROVIDERS: PCP Physician Assistant; Visit Provider Physician Assistant | DX: M43.16 Spondylolisthesis, lumbar region (principal) | CPT/HCPCS: 99202 ==

== ENCOUNTER 2024-05-27 10:12 | Outpatient (AMB) | payer MEDICARE, MEDICAID, SELFPAY ==
[2024-05-27 10:24] VITALS: BP 108/62; PULSE 88; O2SAT 98; BMI 25.1
--- NOTE | 2024-05-27 10:24 | A.OFFPC_ITS ---
Vital Signs 05/27/24 10:24 Height 5 ft 3 in Weight 141 lb 8 oz BMI 25.1 BP 108/62 Blood Pressure Location Lt brachial Position Sitting Pulse 88 Pulse Source Pulse Oximeter Pulse Oximetry (%) 98 Oxygen Delivery Method Room Air Intake Visit Reasons: f/u sz disorder Associate Professor Of Automation Required: No Accompanied by: Self / Same As Patient Allergies No Known Allergies [No Known Allergies*] Allergy (Verified 05/27/24 10:35) Medication List - Last Reconciled 05/27/24 by Gorge Boykin PA-C divalproex ER 1,000 mg (2 x 500 mg) PO BEDTIME 90 days escitalopram oxalate 10 mg PO DAILY PRN lamotrigine 200 mg PO BID 90 days norethindrone-ethin estradiol 1-35 mg-mcg 1 tab PO DAILY pantoprazole 40 mg PO DAILY 90 days topiramate 75 mg (3 x 25 mg) PO BID 90 days topiramate 200 mg PO BID 90 days trazodone 100 mg PO BEDTIME PRN ziprasidone HCl 60 mg PO BID 90 days Tobacco use date assessed: 05/27/24 Dental Screening Dental Screen Date: 05/27/24 Did you have a dental visit in the last 12 months?: Yes Did you have a dental problem in the last 6 months where you did not have access to dental care?: No Was dental information given to patient?: Patient has dentist HPI f/u sz disorder HPI Details Patient is a 38-year-old female here today for a follow-up visit ? Pmhx? Sz disorder , Bipolar disorder, GERD, spondylosis of lumbar spine. .. learing disability: Continues to have rn social work coming to home. Mother is very supportive. .. Lumbar spine muscular issue-- > has done multiple sessions physical therapy though continues to have lumbar spine pain that hinder her activities of daily living. Has followed up with neurosurgeon whom recommend surgery. Has not been able to be compliant with physical therapy. Unfortunately lives a sedentary lifestyle. .. Sz disorder: Sees [facility] Neurologist ( Dr de la torre),? has not had a seizure in 6 years. Continues on multiple antiseizure medications. [facility] Neurology we like PCP now to prescriber seizure medications and continue following divalproex level. .. Bipolar disorder: Is seeing a therapist Weekly, was seeing Dr Dominguez in [place]. Family reports patient has mood has been very stable with mood stabilization medication. [facility] Medical History Bunion of great toe of left foot Family History Mother Lung cancer Social History Housing: House Alcohol intake: never Patient Tobacco Use Status: Never used Tobacco e-Cigarette/Vaping Use: Never Used service: No Current occupational status: disabled Current occupation: [employer] Cognitive needs: No Hearing needs: No Vision needs: Yes Questionnaire PHQ-9 Over the last 2 weeks, how often have you been bothered by any of the following problems? 1. Little interest or pleasure in doing things: not at all 2. Feeling down, depressed, or hopeless: not at all 3. Trouble falling or staying asleep, or sleeping too much: not at all 4. Feeling tired or having little energy: not at all 5. Poor appetite or overeating: not at all 6. Feeling bad about yourself - or that you are a failure or have let yourself or your family down: not at all 7. Trouble concentrating on things, such as reading the newspaper or watching television: not at all 8. Moving or speaking so slowly that other people could have noticed. Or the opposite - being so fidgety or restless that you have been moving around a lot more than usual: not at all 9. Thoughts that you would be better off or of hurting yourself in some way: not at all Total score: 0 Depression Screening Interpretation: Negative Depression Screening Done: Yes 43865 - PHQ-9 Billing: Yes Source: Developed by Drs. Abel Roman, Rhona Villa, Moe Orozco and colleagues, with an educational sharda from [employer]. Thrive Questionnaire Date Thrive assessed: 05/27/24 I am a: Parent/Caregiver What is your living situation today?: I have a steady place to live Within the past 12 months, did the food you bought not last and you didn't have the money to get more?: Never true Within the past 12 months, did you worry whether your food would run out before you got money to buy more?: Never true Do you have trouble paying for medicines?: No Do you have trouble getting transportation to medical appointments?: No Do you have trouble paying your heating and electricity bill?: No Do you have trouble taking care of your child, family member or friend?: No Do you have trouble with day-to-day activities such as bathing, preparing meals, shopping, managing finances, etc.?: Yes Are you currently unemployed and looking for a job?: I choose not to answer this question Are you interested in more education?: No Please select the resources that you would like help with: None Currently or been in a relationship where the following occur: No concerns reported THRIVE Score: 0 AUDIT C Alcohol Use Questionnaire (AUDIT-C) 1. How often do you have a drink containing alcohol?: Never 3. How often do you have six or more drinks on one occasion?: Never Total Score: 0 AHSAN-7 AMB Questionnaire AHSAN-7 Date AHSAN - 7 assessed: 05/27/24 Feeling nervous, anxious, or on edge: 0 = Not at all Not being able to stop or control worryin = Not at all Worrying too much about different things: 0 = Not at all Trouble relaxin = Not at all Being so restless that it is hard to sit still: 0 = Not at all Becoming easily annoyed or irritable: 0 = Not at all Feeling afraid as if something awful might happen: 0 = Not at all Total AHSAN-7 score (0-4 normal; 5-9 mild; 10-14 moderate; 15-21 severe): 0 Source: Developed by Drs. Abel Roman, Rhona Villa, Moe Orozco and colleagues, with an educational sharda from [employer]. AHSAN-7 Assessment Billing AHSAN-7 Assessment Tool: AHSAN-7 Assessment 18898 Review of Systems Const Denies headache(s) Eyes Denies loss of vision ENT Denies vertigo, Denies dizziness, Denies headache(s) and Denies sore throat Card Denies chest pain, Denies leg edema and Denies lightheadedness Resp Denies cough, Denies hemoptysis and Denies wheezing GI Denies abdominal pain, Denies melena, Denies constipation, Denies diarrhea and Denies vomiting Denies urinary frequency, Denies dysuria and Denies urinary urgency Musc Details: + lower back instability Reports back pain, Denies arthralgias, Denies joint swelling, Denies numbness and Denies tingling Neuro Denies Abnormal speech present, Denies behavioral changes, Denies vertigo, Denies dizziness, Denies headache(s), Denies loss of vision, Denies memory loss, Denies numbness and Denies tingling Psych Denies anxiety, Denies behavioral changes, Denies depression, Denies memory loss and Denies panic attacks Rony/Lymph Denies easy bleeding and Denies easy bruising Aller/Immun Denies wheezing Physical exam (Primary Care) Vital Signs: Last Vital Signs Pulse 88 05/27/24 10:24 BP 108/62 05/27/24 10:24 Pulse Ox 98 05/27/24 10:24 Oxygen Delivery Method Room Air 05/27/24 10:24 BMI result Body Mass Index 25.1 Tobacco/Smoking Status: Tobacco use Status Tobacco use date assessed 05/27/24 05/27/24 10:27 Patient Tobacco Use Status Never used Tobacco 05/27/24 10:27 e-Cigarette/Vaping Use Never Used 05/27/24 10:27 PHQ-9: PHQ-9 Score PHQ-9: Total score 0 05/27/24 10:51 Depression Screening Interpretation: Negative Thrive Assessment: Date of Thrive Assessment Date Thrive assessed 05/27/24 05/27/24 10:27 Currently or been in a relationship where the following occur: No concerns reported Const General: healthy appearing, no acute distress, alert and awake Nutritional Appearance: well nourished Orientation/consciousness: oriented to person, oriented to place and oriented to time HENND Ears: TM's normal bilaterally General nose exam: Normal nasal mucous membranes and turbinates present Eyes Conjunctivae: conjunctivae normal Sclerae: sclerae normal Pupils: Equal, round and reactive pupils present Neck Neck: Yes no lymphadenopathy and Yes no JVD Thyroid: Thyroid normal Carotids: no bruits Resp Effort & Inspection: normal respiratory effort and not tachypneic Auscultation: no crackles, no rales, no rhonchi and no wheezes Cardio Rate: regular rate Rhythm: regular rhythm Heart sounds: no murmurs and normal S1 and S2 GI Palpation (GI): Soft to palpation, nontender, no hepatomegaly and no splenomegaly Auscultation: normal bowel sounds Skin General skin exam: no rashes or lesions noted and dry skin Neuro General: oriented to person, oriented to place and oriented to time Cranial nerves: Yes Equal, round and reactive pupils present Speech: No Abnormal speech present Gait exam (Neuro): Normal gait present Motor exam (neuro): no tremor noted Extrem Right upper extremity: full ROM Left upper extremity: full ROM Right lower extremity: full ROM; no edema Left lower extremity: full ROM; no edema Psych Mental Status: mental status grossly normal Speech and movement: Normal speech and movement present Affect: normal affect Attitude: cooperative Thought process: Normal thought process present Coding Level of Care Code Est Pt Level 4 (99888) Diagnoses Spondylolisthesis, lumbar region M43.16 Learning disability F81.9 Bipolar disorder, current episode mixed, moderate F31.62 Active/Remission status: currently active Current bipolar episode type: mixed Current episode severity: moderate Seizure disorder G40.909 Pre-op evaluation Z01.818 Additional Codes AHSAN-7 Assessment Billing - AHSAN-7 Assessment Tool: AHSAN-7 Assessment 11591 ([id number]) PHQ-9 - 88934 - PHQ-9 Billing: Yes ([id number]) Assessment & Plan Assessment & Plan (1) Spondylolisthesis, lumbar region: Code(s): M43.16 - Spondylolisthesis, lumbar region Category: Medical Plan: Has followed up with neurosurgeon whom agrees that patient will need surgery for NSTEMI will lower lumbar Spine vertebrae. There was some discussion per patient's mother about another surgeon assistance with surgery on an anterior approach . From primary care point of view patient is medically clear for needed surgery. (2) Learning disability: Code(s): F81.9 - Developmental disorder of scholastic skills, unspecified Category: Social Hx Plan: As per HPI (3) Bipolar disorder: Code(s): F31.9 - Bipolar disorder, unspecified Category: Medical Qualifiers: Active/Remission status: currently active Current bipolar episode type: mixed Current episode severity: moderate Qualified Code(s): F31.62 - Bipolar disorder, current episode mixed, moderate Plan: Patient continues to follow psychiatrist whom manage his her mental health medication. (4) Seizure disorder: Code(s): G40.909 - Epilepsy, unspecified, not intractable, without status epilepticus Category: Medical Plan: Patient has not had a seizure in quite some time. Continues on antiepileptic medication with good effect. (5) Pre-op evaluation: Code(s): Z01.818 - Encounter for other preprocedural examination Category: Medical Plan: Patient's vitals and most recent labs stable. Patient medically clear for needed lumbar spine surgery Orders: Orders ECG 12 lead EKG 05/27/24 Z01.818 - Encounter for other preprocedural examination
--- OUTSIDE RECORDS SUMMARY | 2024-05-27 12:07 | XMS_ITS | Clinical Summary ---
Author Organization [facility] Address [address] [place] [address] Care Team Providers Care Lab Associate Name Role Phone Martha-Destiny Reece MD Primary [...] affective 12/24/2009 Seizure Disorder - followed by [facility] Neurology - Dr Ayala 08/01/2007 Microcephaly 08/01/2007 [...] Influenza H1N1 Pandemic Flu Vaccine 05/21/2009 MMR (Oqfvekw-Uomhq-Hkeikkn) 01/15/1997, 7 PPD-Negative Response(External) 11/24/1998,10/24,11/24/1986 Polio (OPV) [...] H RISK PATIENTS (#1) 2050 Care Teams Lab Associate Relationship Specialty Start Date End Date Whitman-Destiny Reece MD PCP - General 01/21/07
--- OUTSIDE RECORDS SUMMARY | 2024-05-27 12:07 | XMS_ITS | Encounter Summary ---
Author Organization [facility] Address [address] [place] [address] Care Team Providers Care Battery Plate Remover Name Role Phone Destiny Gar MD Primary Care Provider Unavailable Encounter Details Date Type Department Care Team Description 01/01/2013 Scaffolder Report Medical Records [address] [place] [address] Jennifer Romo NP Social History Tobacco Use [...] on filedocumented in this encounter Care Teams Battery Plate Remover Relationship Specialty Start Date End Date Destiny Gar MD PCP - General 01/21/07 documented as of this encounter
--- OUTSIDE RECORDS SUMMARY | 2024-05-27 12:07 | XMS_ITS | Encounter Summary ---
Author Organization [facility] Address [address] [place] [address] Care Team Providers Care Qa Automation Engineer Name Role Phone Martha-Destiny Reece MD Primary Care Provider Unavailable Reason for Visit * Reason Onset Date Comments refill request 10/30/2019 Encounter Details Date Type Department Care Team Description 10/30/2019 Refill OBGYN - [place] [address] [place] [address] Zeina Kern MD [address] [place] [id number] refill request Social History Tobacco Use Types [...] encounter Miscellaneous Notes * Telephone Encounter - Sabiha Emely - 10/30/2019 12:25 PM EDT WHEN WAS THE PATIENTS LAST ANNUAL SPECIALTY PERSON EXAM? 11/29/18 Does patient have an upcoming appointment? 12/17/19 (THE MEDICATION REQUESTED IS ON THE MED LIST ABOVE) Did you check the Pharmacy information above?: YES Indicate how soon the patient needs the script: ALINA Patient would like script to be: E-PRESCRIBED/FAXED TO PHARMACY Is the doctor here today?: NO Can the message wait until the doctor returns?: NO Has the patient been told that the prescription will not be filled until the end of the day? NO Payor: MEDICARE-Tout / Plan: MEDICARE-Tout / Product Type: MEDICARE [id number] documented in this encounter Plan of Treatment Not on file documented as of this encounter Visit Diagnoses Diagnosis Premenstrual dysphoric disorder Premenstrual tension syndromes documented in this encounter Care Teams Qa Automation Engineer Relationship Specialty Start Date End Date Martha-Destiny Reece MD PCP - General 01/21/07 documented as of this encounter
--- OUTSIDE RECORDS SUMMARY | 2024-05-27 12:07 | XMS_ITS | Encounter Summary ---
Author Organization [facility] Address [address] [place] [address] Care Team Providers Care Simulation Tech Name Role Phone Martha-Destiny Reece MD Primary Care Provider Unavailable Reason for Visit * Reason Onset Date Comments refill request 05/18/2017 Encounter Details Date Type Department Care Team Description 05/18/2017 Refill OBGYN - [place] [address] [place] [address] Janelle Day MD refill request Social History [...] EST WHEN WAS THE PATIENTS LAST ANNUAL METAL MOVER EXAM? 07/19/2016 Does patient have an upcoming [...] the end of the day? NO Payor: MEDICARE-NE / Plan: MEDICARE-NE / Product Type: MEDICARE [id number] documented in this encounter Plan of Treatment Not on file documented as of this encounter Visit Diagnoses Not on filedocumented in this encounter Care Teams Simulation Tech Relationship Specialty Start Date End Date Martha-Destiny Reece MD PCP - General 01/21/07 documented as of this encounter
--- OUTSIDE RECORDS SUMMARY | 2024-05-27 12:07 | XMS_ITS | Encounter Summary ---
Author Organization [facility] Address [address] [place] [address] Care Team Providers Care Wall Taper Name Role Phone Destiny Gar MD Primary Care Provider Unavailable Encounter Details Date Type Department Care Team Description 09/06/2012 Business Doc Medical Records [address] [place] [address] Abstract, Provider Social History Tobacco Use Types [...] on filedocumented in this encounter Care Teams Wall Taper Relationship Specialty Start Date End Date Destiny Gar MD PCP - General 01/21/07 documented as of this encounter
--- OUTSIDE RECORDS SUMMARY | 2024-05-27 12:07 | XMS_ITS | Encounter Summary ---
Author Organization [facility] Address [address] [place] [address] Care Team Providers Care Oil Speculator Name Role Phone Destiny Gar MD Primary Care Provider Unavailable Encounter Details Date Type Department Care Team Description 02/21/2010 Line Fixer Report Medical Records [address] [place] [address] Jennifer Romo NP Social History Tobacco Use [...] on filedocumented in this encounter Care Teams Oil Speculator Relationship Specialty Start Date End Date Destiny Gar MD PCP - General 01/21/07 documented as of this encounter
--- OUTSIDE RECORDS SUMMARY | 2024-05-27 12:07 | XMS_ITS | Encounter Summary ---
Author Organization [facility] Address [address] [place] [address] Care Team Providers Care Transplant Nurse Practitioner Name Role Phone Destiny Gar MD Primary Care Provider Unavailable Encounter Details Date Type Department Care Team Description 08/30/2017 Business Doc Medical Records [address] [place] [address] Abstract, Provider Social History Tobacco Use Types [...] on filedocumented in this encounter Care Teams Transplant Nurse Practitioner Relationship Specialty Start Date End Date Destiny Gar MD PCP - General 01/21/07 documented as of this encounter
--- OUTSIDE RECORDS SUMMARY | 2024-05-27 12:07 | XMS_ITS | Encounter Summary ---
Author Organization [facility] Address [address] [place] [address] Care Team Providers Care Staffing Program Manager Name Role Phone Martha-Destiny Reece MD Primary Care Provider Unavailable Reason for Visit * Reason Onset Date Comments refill request 06/05/2016 sb Encounter Details Date Type Department Care Team Description 06/05/2016 Refill OBGYN - [place] [address] [place] [address] Sindi Ramirez CNM refill request (sb) Social [...] Notes * Telephone Encounter - Maria M Keelyzya - 06/05/2016 8:40 AM EDT WHEN WAS THE PATIENTS LAST ANNUAL WOOL HAT FORMING MACHINE TENDER EXAM? 10/30/14 Does patient have an upcoming [...] / Plan: [place]ICARE-[place] / Product Type: MEDICARE [id number] documented in this encounter Plan of Treatment Not on file documented as of this encounter Visit Diagnoses Not on filedocumented in this encounter Care Teams Staffing Program Manager Relationship Specialty Start Date End Date Martha-Destiny Reece MD PCP - General 01/21/07 documented as of this encounter
--- OUTSIDE RECORDS SUMMARY | 2024-05-27 12:07 | XMS_ITS | Clinical Summary ---
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 DX:Behavior di sorder Microcephaly (CMS/HCC) 08/01/2007 DX:Microc ephaly ([facility]) Anxiety 03/15/2007 DX:Anxiety Seizure disorder (CMS/HCC) DX:Se izure disorder ([facility]); COMMENT: followed by [facility] Neurology - Dr Gardner PTSD (post-traumatic stress disorder) 12/24/2009 DX:PTSD (post-traumatic stress disorder) Bipolar affective ([facility]/HCC) 12/24/2009 DX:B ipolar affective ([facility]) Panic attacks DX:Panic attacks Family History Medical [...] RESULTING AGENCY - 07/21/2021 7:35 AM EDT [id number] THINPREP PAP, IMAGED: NEGATIVE FOR SQUAMOUS INTRAEPITHELIAL [...] Recently Relevant to Health Maintenance Care Teams Animal Nutritionist Relationship Specialty Start Date End Date Martha-Destiny Reece MD PCP - General 01/21/07
--- OUTSIDE RECORDS SUMMARY | 2024-05-27 12:07 | XMS_ITS | Encounter Summary ---
Author Organization [facility] Address [address] [place] [address] Care Team Providers Care Senior It Architect Name Role Phone Destiny Gar MD Primary Care Provider Unavailable Encounter Details Date Type Department Care Team Description 09/19/2013 Business Doc Medical Records [address] [place] [address] Abstract, Provider Social History Tobacco Use Types [...] filedocumented in this encounter Care Teams Senior It Architect Relationship Specialty Start Date End Date Destiny Gar MD PCP - General 01/21/07 documented as of this encounter
--- OUTSIDE RECORDS SUMMARY | 2024-05-27 12:07 | XMS_ITS | Encounter Summary ---
Author Organization [facility] Address [address] [place] [address] Care Team Providers Care Reading Specialist Name Role Phone Destiny Gar MD Primary Care Provider Unavailable Encounter Details Date Type Department Care Team Description 03/02/2011 Sheriff'S Officer Report Medical Records [address] [place] [address] Jennifer Romo NP Social History Tobacco Use [...] on filedocumented in this encounter Care Teams Reading Specialist Relationship Specialty Start Date End Date Destiny Gar MD PCP - General 01/21/07 documented as of this encounter
--- OUTSIDE RECORDS SUMMARY | 2024-05-27 12:07 | XMS_ITS | Encounter Summary ---
Author Organization [facility] Address [address] [place] [address] Care Team Providers Care Manager Inventory Control Name Role Phone Destiny Gar MD Primary Care Provider Unavailable Encounter Details Date Type Department Care Team Description 08/29/2010 Bricklayer Report Medical Records [address] [place] [address] Jennifer Romo NP Social History Tobacco Use [...] on filedocumented in this encounter Care Teams Manager Inventory Control Relationship Specialty Start Date End Date Destiny Gar MD PCP - General 01/21/07 documented as of this encounter
--- OUTSIDE RECORDS SUMMARY | 2024-05-27 12:07 | XMS_ITS | Encounter Summary ---
Author Organization [facility] Address [address] [place] [address] Care Team Providers Care Cup Setter Lockstitch Name Role Phone Destiny Gar MD Primary Care Provider Unavailable Encounter Details Date Type Department Care Team Description 07/02/2012 Cdl Team Truck Driver Report Medical Records [address] [place] [address] Jennifer Romo NP Social History Tobacco Use [...] on filedocumented in this encounter Care Teams Cup Setter Lockstitch Relationship Specialty Start Date End Date Destiny Gar MD PCP - General 01/21/07 documented as of this encounter
== END 2024-05-27 11:19 | disposition home or self-care (01) ==
PROVIDERS: PCP Physician Assistant; Visit Provider Physician Assistant
DX: M43.16 Spondylolisthesis, lumbar region (principal); F81.9 Developmental disorder of scholastic skills, unspecified; F31.62 Bipolar disorder, current episode mixed, moderate; G40.909 Epilepsy, unspecified, not intractable, without status epilepticus; Z01.818 Encounter for other preprocedural examination

== ENCOUNTER → 2024-05-27 10:12 | Outpatient (BNVA) | payer MEDICARE, MEDICAID, SELFPAY | PROVIDERS: PCP Physician Assistant; Visit Provider Physician Assistant | DX: Z01.818 Encounter for other preprocedural examination (principal); M43.16 Spondylolisthesis, lumbar region; F81.9 Developmental disorder of scholastic skills, unspecified; F31.62 Bipolar disorder, current episode mixed, moderate; G40.909 Epilepsy, unspecified, not intractable, without status epilepticus | CPT/HCPCS: 96127; 99212 ==

== ENCOUNTER 2024-10-07 06:07 | Outpatient (BNV) | payer MEDICARE, MEDICAID, SELFPAY | END 2024-10-08 08:28 | PROVIDERS: Admitting Provider Neurological Surgery; PCP Physician Assistant; Visit Provider Radiology Diagnostic Radiology | DX: M43.27 Fusion of spine, lumbosacral region (principal) | CPT/HCPCS: 72131 ==

== ENCOUNTER 2024-10-07 06:07 | Outpatient (BNV) | payer MEDICARE, MEDICAID, SELFPAY | END 2024-10-07 08:20 | PROVIDERS: Admitting Provider Neurological Surgery; PCP Physician Assistant; Visit Provider Radiology Diagnostic Radiology | DX: Z48.89 Encounter for other specified surgical aftercare (principal) | CPT/HCPCS: 74018 ==

== ENCOUNTER 2024-10-07 06:07 | Inpatient (IN) | payer MEDICARE, MEDICAID, SELFPAY ==
[2024-09-24 12:09] VITALS: BP 82/48; PULSE 64; RESP 20; O2SAT 100; BMI 23.0
[2024-09-24 13:44] LABS: Hematocrit 37.0 % (37.0-47.0); Hemoglobin 12.2 g/dl (12.0-16.0); Mean Corpuscular HGB Conc 33.0 g/dl (31.0-35.0); Mean Corpuscular Hemoglobin 33.7 pg (27.0-33.0); Mean Corpuscular Volume 102.2 fL (80.0-98.0); NRBC Abs Auto 0.000 X10*3/uL (0.0-0.012); NRBC Pct Auto 0.0 /100WBC (0.0-0.2); Platelet Count 145 X10*3/uL (160-400); Red Blood Count 3.62 X10*6/uL (4.20-5.50); White Blood Count 4.4 X10*3/uL (4.8-10.8)
[2024-09-24 14:11] LABS: Anion Gap 11 (12-20); Blood Urea Nitrogen 16 mg/dL (9-16); Calcium 8.3 mg/dL (8.4-10.2); Carbon Dioxide 21 mmol/L (22-29); Chloride 110 mmol/L (96-108); Creatinine Clr Calc Pharmacy 96.6; Estimated Glomerular Filt Rate > 60; Potassium 3.8 mmol/L (3.3-5.1); Sodium 138 mmol/L (135-145)
[2024-10-07] VITALS (18 sets, daily range): BP systolic 80–106; BP diastolic 39–68; PULSE 68–104; RESP 14–18; TEMP 36–36.9; O2SAT 94–100; BMI 23.4
--- NOTE | ~2024-10-07 | CT_ITS ---
EXAMINATION: CT LUMBAR SPINE WITHOUT CONTRAST CLINICAL INFORMATION: Status post L5-S1 ALIF with new left thigh numbness. COMPARISON: No prior CT. Correlation made with MR lumbar 04/27/2024. Lumbar radiographs 03/03/2024. TECHNIQUE: CT imaging of the lumbar spine was done without IV contrast, utilizing spiral technique. Sagittal, coronal, and thin section axial reformatted images were constructed from the axial data set. This CT examination was performed using dose optimization techniques as appropriate, variously including the following: *Automated exposure control *Adjustment of mA and/or kV according to patient size (this includes techniques or standardized protocols for targeted exams where dose is matched to indication/reason for exam; i.e. extremities or head) *Use of iterative reconstruction technique FINDINGS: CORONAL ALIGNMENT: -There is a trace right convex scoliosis, possibly positional. SAGITTAL ALIGNMENT: -There is a normal lordosis. -There is an 8 mm spondylolisthesis L5 on S1 with full-thickness pars defects. -There is no additional subluxation. LUMBOSACRAL JUNCTION: -Normal. There are 5 [id number] lumbar-type vertebral bodies. VERTEBRAL BODIES/BONE: -No fractures, compression deformities, or suspicious bone lesions. -There has been posterior and anterior interbody fusion of L5-S1 with transpedicular screws, posterior connecting rods, and interbody disc graft. The hardware appears well seated and intact. There is no periscrew or prosthetic lucency or fracture. No evidence of complication. -Normal facet alignment bilaterally. Full-thickness pars defects L5. DISCS: -Nonoperative disc levels appear normal. SPINAL CANAL: -No abnormal developmental findings. AXIAL DISC SPACE IMAGES: T12-L1: No central canal or neural foraminal narrowing. L1-L2: No central canal or neural foraminal narrowing. L2-L3: No central canal or neural foraminal narrowing. L3-L4: No central canal or neural foraminal narrowing. L4-L5: Mild diffuse disc bulge is present, minimally indenting on the ventral thecal sac, without significant central canal narrowing. There is mild bilateral neural foraminal narrowing. L5-S1: Grade 1, 8 mm spondylolisthesis. Fixation hardware as detailed above. No central canal narrowing. There is severe bilateral neural foraminal narrowing, similar to the prior MRI. PARAVERTEBRAL AND INCLUDED EXTRASPINAL SOFT TISSUES: -There is small volume soft tissue gas, fluid and edema in the paravertebral region at L5-S1, presumably postoperative although developing infection is a consideration given the appearance. There is small volume presacral fluid, and there is gas tracking in the left inferior retroperitoneum, anterior to the left SI joint, abutting the left iliac vessels. Gas extends in the left retroperitoneum to the inferior margin of the scan. CT/CT lumbar spine wo IV con IMPRESSION: 1. There has been dorsal and anterior fusion at L5-S1, without hardware complication evident. 2. There is small volume fluid and gas in the prevertebral space at L5-S1, and tracking in the prevertebral space, presacral space, and in the left retroperitoneum abutting the iliac vessels, to the inferior edge of the scan. This is presumably postoperative change although developing infection is also a possibility given the appearance. Close interval follow-up recommended. 3. See the body of the report for additional details. Electronically signed by: Tim Paula MD 10/08/2024 09:42 AM EDT
--- NOTE | ~2024-10-07 | FL_ITS ---
EXAMINATION: FL GUIDANCE ONLY HISTORY: L5-S1 ALIF COMPARISON: Correlation is made with plain films of the lumbar spine dated 03/03/2024. TECHNIQUE: Fluoroscopy time: 1 minute, 42 seconds. Cumulative Dose: 77.05 mGy. DAP: 20.285 mGym2 Images: 5. FINDINGS: Fluoroscopic spot films of the lumbar spine demonstrate posterior fusion of L5 and S1 with pedicle screws, spinal stabilization rods, and an intervertebral spacer. The degree of spondylolisthesis of L5 on S1 appears improved. FL/FL guidance in OR IMPRESSION: Fluoroscopy during procedure. Please see procedure report for additional information. Electronically signed by: Abel Purvis MD 10/07/2024 11:08 AM EDT
--- NOTE | ~2024-10-07 | XR_ITS ---
EXAMINATION: XR ABDOMEN 1 VIEW (KUB) HISTORY: s/p ALIF COMPARISON: There are no prior studies available for comparison. FINDINGS: A single supine view of the abdomen is submitted. The bowel gas pattern is unremarkable, without evidence of mechanical obstruction. There is a large amount of gas throughout the colon. No abnormal calcifications are identified. There are linear gas densities in the left lower quadrant which may be within bowel or related to recent surgery. A metallic density projects over the upper sacrum likely representing an L5-S1 disc prosthesis. XR/XR abdomen 1V IMPRESSION: Large amount of stool throughout the colon. Linear gas densities in the left lower quadrant may be within bowel or related to recent surgery. Electronically signed by: Abel Purvis MD 10/07/2024 10:00 AM EDT
[2024-10-07 06:29] LABS: UPreg QC Valid YES
[2024-10-07] MEDS: Lactated Ringers 500 ML 999 ML IV (07:01)
--- NOTE | 2024-10-07 07:08 | MHC.SHP ---
Pre-Procedural Eval Section A - 24 Hr Update-Section A only Date of Service: 10/07/24 The patient is an INPATIENT: No Changes since office visit: No Cold of Flu in the past 2 weeks, No New Medical Problems, No Changes in Medication and No Patient answered all questions The patient has been examined within 24 hours of the surgical procedure. The History & Physical has been completed within 30 days and I have reviewed it.: No Section B - Complete if H&P > 30 days Chief Complaint: s/p L5-S1 Allergies: Allergies Allergy/AdvReac Type Severity Reaction Status Date / Time No Known Allergies (No Known Allergy Verified 05/27/24 10:35 Allergies*) Review of Systems Sugical H&P ROS: Negative: Constitution, Cardiovascular, Respiratory, Neurological, Psychiatric, Hem-Onc, Allergic/Immunologic, Gastrointestinal, Genitourinary, Musculoskeletal, Integumentary, Endocrine and Eyes/Ears/Nose/Throat Exam Surgical H&P Exam: Normal: HEENT, Normal: Heart, Normal: Lungs, Normal: Extremities, Normal: Abdomen, Normal: Skin and Normal: Neurological (awake, alert,oriented x 3 ) Plan Diagnosis/Plan: Unchanged L5-S1 anterior lumbar interbody fusion Time Spent With Patient Time: Total time managing care of this patient today __5__ minutes.
--- NOTE | 2024-10-07 07:23 | HO.ANESPROP2 ---
Documented by User: Myriam Brannon NP 10/06/24 09:35 HPI - Anesthesia Eval Consult details Narrative: 38yo F for L5-S1 Ant Lumbar Interbody Fusion, 10/07/24 Developmental delay. Mother is legal guardian and signs consent. No recent illness No CP/SOB with limited activity d/t back pain BP low at PAT 82/48. Per mom, pt asymptomatic Seizure: Last gran mal 6 years ago. Follows PCP only at this time. Case reviewed with CL. SORTO for DOS BP eval PMFSH Active Problems Active Problems: All Active Problems Pre-op evaluation (Acute) Spondylolisthesis, lumbar region (Acute) Learning disability (Acute) Annual physical exam (Acute) Spondylosis of lumbar spine (Acute) Screening for hypothyroidism (Acute) GERD (gastroesophageal reflux disease) (Acute) Lumbar spine pain (Acute) Thoracic spine pain (Acute) Screening for hypercholesterolemia (Acute) Screening for diabetes mellitus (DM) (Acute) Seizure disorder (Acute) Bipolar disorder (Acute) Past Medical History Medical History (Updated 09/24/24 @ 12:24 by Elizabeth Villa RN) Back pain Static encephalopathy Bipolar disorder Seizure disorder Learning disability GERD (gastroesophageal reflux disease) Family History Family History Mother Lung cancer Surgical History Surgical History (Updated 09/24/24 @ 11:59 by Elizabeth Villa RN) History of bunionectomy Social History Social History Household Members Other:: mother Housing: House Are you a primary patient care representative to a significant other at home: No Do you presently have visiting nurse or other home services: Yes ([facility]) Alcohol intake: never Patient Tobacco Use Status: Never used Tobacco e-Cigarette/Vaping Use: Never Used Use of substances other than those prescribed or required for medical reasons: No Have you been hit, kicked, punched, or otherwise hurt by someone within the past year? If so, by whom?: No Spiritual Healthcare Practices: no Scientologist Healthcare Practices: no Cultural Healthcare Practices: no Are you DNR?: No Advance Directives Information Provided: Yes (as above noted, will bring documents DOS) Advance Directives on File: No Patient : No FDLMP: 09/12/24 : No Poor oral hygiene: No service: No Current occupational status: disabled Current occupation: [employer] Cognitive needs: No Hearing needs: No Vision needs: Yes Meds Allergies Allergy/AdvReac Type Severity Reaction Status Date / Time No Known Allergies (No Known Allergy Verified 05/27/24 10:35 Allergies*) Home Medications ?Medication ?Instructions ?Recorded ?Confirmed ?Last Taken ?Type escitalopram oxalate 10 mg tablet 10 mg PO QAM 06/09/20 09/24/24 10/07/24 History norethindrone 1 mg-ethinyl 1 tab PO DAILY 06/09/20 09/24/24 10/06/24 History estradiol 35 mcg tablet trazodone 50 mg tablet 100 mg PO BEDTIME PRN Insomnia 11/10/21 09/24/24 Unknown History multivitamin 1 tab PO QAM 09/24/24 09/24/24 10/06/24 History pantoprazole 40 mg tablet,delayed 40 mg PO QAM 09/24/24 09/24/24 10/07/24 History release topiramate 25 mg tablet 75 mg PO TID 09/24/24 09/24/24 10/07/24 History Exam Height,Weight and Vital Signs: Height 5 ft 5 in Weight 62.596 kg Last Vital Signs Pulse 64 09/24/24 12:09 Resp 20 09/24/24 12:09 BP 82/48 L 09/24/24 12:09 Pulse Ox 100 09/24/24 12:09 O2 Del Method Room Air 09/24/24 12:09 Pertinent Lab Results Pertinent Lab Results: Lab Results 09/24/24 Range/Units 13:10 WBC 4.4 L (4.8-10.8) X10*3/uL RBC 3.62 L (4.20-5.50) X10*6/uL Hgb 12.2 (12.0-16.0) g/dl Hct 37.0 (37.0-47.0) % MCV 102.2 H (80.0-98.0) fL MCH 33.7 H (27.0-33.0) pg MCHC 33.0 (31.0-35.0) g/dl RDW 12.2 (11.0-16.0) % Plt Count 145 L (160-400) X10*3/uL MPV 10.2 (9.4-12.3) fL Absolute Nucleated RBC 0.000 (0.0-0.012) X10*3/uL Nucleated RBC % (auto) 0.0 (0.0-0.2) /100WBC Sodium 138 (135-145) mmol/L Potassium 3.8 (3.3-5.1) mmol/L Chloride 110 H (96-108) mmol/L Carbon Dioxide 21 L (22-29) mmol/L Anion Gap 11 L (12-20) BUN 16 (9-16) mg/dL Creatinine 0.71 (0.5-1.4) mg/dL Estim Creat Clear Calc 96.6 Estimated GFR > 60 Random Glucose 68 (60-115) mg/dL Calcium 8.3 L (8.4-10.2) mg/dL Blood Type O Negative Antibody Screen NEGATIVE Airway Mallampati Class: I TM Dist: >3cm Neck ROM: Full Loose/Missing/Broken Teeth: No (Crowned upper front teeth) Heart: RRR Lungs: CTAB Assessment and Plan Assessment Anesthesia Assessment: Anesthesia Plan Discussed and PAT Visit Documented by User: Kimmy Wayne DO 10/07/24 07:26 HPI - Anesthesia Eval Consult details Narrative: 38yo F for L5-S1 Ant Lumbar Interbody Fusion, 10/07/24 Developmental delay. Mother is legal guardian and signs consent. No recent illness No CP/SOB with limited activity d/t back pain BP runs low at baseline Seizure: Last gran mal 6 years ago. Follows PCP only at this time. [facility] Past Medical History Medical History (Updated 09/24/24 @ 12:24 by Elizabeth Villa RN) Back pain Static encephalopathy Bipolar disorder Seizure disorder Learning disability GERD (gastroesophageal reflux disease) Family History Family History Mother Lung cancer Family history of problems with anesthesia: No Surgical History Surgical History (Updated 09/24/24 @ 11:59 by Elizabeth Villa RN) History of bunionectomy History of Problems with Anesthesia: No Social History Social History Household Members Other:: mother Housing: House Are you a primary patient care representative to a significant other at home: No Do you presently have visiting nurse or other home services: Yes ([facility]) Alcohol intake: never Patient Tobacco Use Status: Never used Tobacco e-Cigarette/Vaping Use: Never Used Use of substances other than those prescribed or required for medical reasons: No Have you been hit, kicked, punched, or otherwise hurt by someone within the past year? If so, by whom?: No Spiritual Healthcare Practices: no Scientologist Healthcare Practices: no Cultural Healthcare Practices: no Are you DNR?: No Advance Directives Information Provided: Yes (as above noted, will bring documents DOS) Advance Directives on File: No Patient : No FDLMP: 09/12/24 : No Poor oral hygiene: No service: No Current occupational status: disabled Current occupation: [employer] Cognitive needs: No Hearing needs: No Vision needs: Yes Meds Allergies Allergy/AdvReac Type Severity Reaction Status Date / Time No Known Allergies (No Known Allergy Verified 05/27/24 10:35 Allergies*) Home Medications ?Medication ?Instructions ?Recorded ?Confirmed ?Last Taken ?Type escitalopram oxalate 10 mg tablet 10 mg PO QAM 06/09/20 09/24/24 10/07/24 History norethindrone 1 mg-ethinyl 1 tab PO DAILY 06/09/20 09/24/24 10/06/24 History estradiol 35 mcg tablet trazodone 50 mg tablet 100 mg PO BEDTIME PRN Insomnia 11/10/21 09/24/24 Unknown History multivitamin 1 tab PO QAM 09/24/24 09/24/24 10/06/24 History pantoprazole 40 mg tablet,delayed 40 mg PO QAM 09/24/24 09/24/24 10/07/24 History release topiramate 25 mg tablet 75 mg PO TID 09/24/24 09/24/24 10/07/24 History Exam Exam Date and Time: 10/07/24 0720 Height,Weight and Vital Signs: Height 5 ft 5 in Weight 62.596 kg Last Vital Signs Pulse 64 09/24/24 12:09 Resp 20 09/24/24 12:09 BP 82/48 L 09/24/24 12:09 Pulse Ox 100 09/24/24 12:09 O2 Del Method Room Air 09/24/24 12:09 Vital Signs Pulse Rate 64 09/24/24 12:09 Respiratory Rate 20 09/24/24 12:09 Blood Pressure 82/48 L 09/24/24 12:09 Pulse Oximetry 100 09/24/24 12:09 Oxygen Delivery Method Room Air 09/24/24 12:09 Temperature 98.4 F 10/07/24 06:46 Pulse Rate 68 10/07/24 06:46 Respiratory Rate 16 10/07/24 06:46 Blood Pressure 93/54 L 10/07/24 06:46 Pulse Oximetry 99 10/07/24 06:46 Oxygen Delivery Method Room Air 10/07/24 06:46 Airway Mallampati Class: II TM Dist: >3cm Neck ROM: Full Loose/Missing/Broken Teeth: No (Crowned upper front teeth) Heart: S1S2 Assessment and Plan Assessment Anesthesia Assessment: Anesthesia Plan Discussed and Chart Reviewed Final Anesthetic Review Family History of Problems with Anesthesia: No History of Problems with Anesthesia: No NPO: Yes ASA Class: II Final Preanesthetic Review: No Changes in Pt Med Stat, Meds/Allgs Chart Reviewed, Consent Obtained/Reviewed and Anes Risks/Benef Reviewed Patient Risk: Low Procedure Risk: Intermediate Anesthetic Plan Anesthetic Plan: GA and Agree w/ Assess. and Plan Disposition: Standard PACU
[2024-10-07] MEDS: Lactated Ringers 1,000 ML 100 ML IVCONT (07:34)
--- NOTE | 2024-10-07 07:37 | PHA.MEDREC ---
Pharmacy Consult ? Medication Reconciliation Pharmacy has reviewed the medication reconciliation completed by nursing Spoke with patient and family member to confirm patient is on Depakote DELAYED RELEASE, takes Lexapro 20mg daily, topiramate BID, and clonidine 0.1 HS prn.
--- NOTE | 2024-10-07 09:28 | W.PM.OPN ---
Operative Note Operative Note Date of Service: 10/07/24 Narrative: Pre -op diagnosis: Degenerative Lumbar spine with collapse, spondylolisthesis L5-S1 Post-op diagnosis: the same Procedure: Anterior exposure for Diskectomy and inter-body fusion L5-S1 Dr. Griggs was co-surgeon for fusion The patient was brought to the operating room, positioned on the table supine and general anesthesia was administered. The abdomen was prepped and draped in the usual sterile fashion. After timeout was done, incision was made in the infraumbilical area just to the left of the midline 6 cm longto the pubis. It was brought through subcutaneous tissue and the left anterior rectus sheath in line with the skin incision . The pre-peritoneal plane was entered, peritoneum was bluntly dissected off and iliac artery pulse was felt. Epigastric vessels were preserved.Round ligament was transected between clips. Self-retaining retractor with two deep blades wasinserted and peritoneum protected with moist gauzes. Left internal iliac vein was identified and dissection was carried along the medial surface of the iliac vein up to the bifurcation. The middle sacral vessels were transected and L5-S1 disc space was bluntly and sharply dissected using bipolar cautery staying directly on the surface of the spine. The midline of the disk space was marked with C-arm image guide. Dr. Griggs then proceeded with the diskectomy and fusion, which will be dictated separately by him. After this was done, hemostasis was checked and was excellent. Left ureter was examined prior to closure and was intact. There was good left external iliac artery pulse. Diluted 0.5% Marcaine and Lidocaine was injected in the fascia and subcutaneous tissue. The incision was irrigated and closed by layers using a , 0 Maxone for the midline, 3-0 Vicryl for subcutaneous tissue and 4-0 Monocryl for skin. Exo-fin glue was then applied.
--- NOTE | 2024-10-07 10:41 | P.OP_ITS ---
Operative Note Operative Note Date of Service: 10/07/24 Narrative: Preoperative Diagnosis: 1.) Grade 3 spondylolisthesis L5-S1; lumbar radiculopathy and back pain Procedure: L5-S1 discectomy, arthrodesis and implantation cage through an anterior lumbar approach (ALIF) ; anterior instrumentation L5-S1; posterior instrumented fusion L5-S1; allograft Indication for Surgery Lumbar spondylolisthesis Consent Informed Consent was obtained for this operation. I have explained the nature, purpose and benefits of the operation. I have discussed the risks and benefit of the operation including possible complications or adverse events with patient/family. Alternative(s) were discussed with the patient with their relative benefits and risks as well as the consequences of not accepting the operation were included in obtaining consent. Surgeon: VALENTIN CARROLL MD, PHD Procedure Assisted By: AVANI CHOI MD and LAURENCE Sierra Description of Procedure This 38-year-old female is suffering from severe back pain and bilateral lumbar radiculopathy due to a grade 3 L5-S1 spondylolisthesis with bilateral L5 foraminal stenosis. The patient was offered an anterior lumbar interbody fusion with anterior and posterior L5-S1 instrumentation. The procedure complications were explained. The patient was consented. The patient was brought to the operating room and endotracheally intubated. The patient was put in a supine position. Prep and drape was done followed by timeout. Dr. Choi, co-surgeon, provided the access to the L5-S1 disc space through an anterior approach. He was assisted by physician assistant corporate secretary who performed manual retraction. He will dictate the approach in a separate operative note. When the L5-S1 disc space was exposed I took over the procedure. An annulotomy was done followed by a partial discectomy. I removed the large anterior lip from the L5 vertebral body to get access to the L5-S1 disc space. An elevate Cobbn provided initial access and then sequential trial implants were inserted and advanced towards the posterior wall of the disc space. I completed the discectomy and prepare the endplates. Then a 34 x 21 x 8 and 6 degree lordosis 4 web cage filled with allograft was inserted into the disc space. Anterior instrumentation was added to secure the implant. A screw with the length 27 mm long was inserted into the S1 vertebral body. The retractor was removed and hemostasis was done by Dr. Brown who closed the incision. This marked first part of the procedure. Accordingly the patient was turned prone on the Jozef spine table and 2 C arms were installed for fluoroscopy. Prep and drape was done followed by a second timeout. 2 paramedian incisions were made lateral from the L5-S1 pedicles. The muscle fascia was opened and the musculature was split bluntly to expose the posterolateral gutter. The following steps were taken for pedicle screw placement: The pediguard tap was used to create a transpedicular trajectory into the vertebral body. A K wire was advanced. A specially designed instrument was advanced over the K wire to decorticate the posterolateral gutter. Pedicle screw was advanced after which the K wire was removed. Following the steps pedicle screws were placed in the bilateral L5 and S1 pedicles. Total of 4 screws were placed with the following measurements: 6.5 x 50 mm in the bilateral L5 pedicles and a 6.5 by 40 mm in the bilateral S1 pedicles. A 45 mm miranda was tunneled on the right side and a 40 mm miranda on the left side. The spondylolisthesis was further reduced to a grade 1.5 with the tightening of the locking caps at L5. The extension towers were removed. The posterolateral fusion was completed by laying down allograft in the posterolateral gutter. Hemostasis was done. The paramedian incisions were closed with an 0 Vicryl to fascia and 3- 0 Vicryl to subdermal layer. Steri-Strips were used to approximate the incision. An OpSite with Tegaderm was used to cover the incisions. All sponge and needle counts were correct. The patient was extubated and transported in stable condition to recovery room. The physician assistant corporate secretary was critical for the following aspects of surgery anterior approach, insertion of pedicle screws, interpretation of radiologic imaging and closure of the incisions. Anesthesia: General Estimated Blood Loss (ml): 35 Duration of Surgery: 3 hours Complications: None Postoperative Plan: Admit to inpatient for clinical observation
--- NOTE | 2024-10-07 17:55 | PC.NURSE ---
Blood pressure running soft, systolic mid 80's. Per patient's caregiver, the patient's baseline is 80's and 90's. Patient asymptomatic. Resting in bed with c/o mild to moderate pain, but tolerable. LAURENCE Schroeder and Dr. Griggs aware.
--- NOTE | 2024-10-07 21:22 | PC.NURSE ---
pt family in room reports depakote daily AM is supposed to be daily at bed timed. dr montes notified. depakote given with the rest of PM meds per family request
[2024-10-08 00:04] VITALS: BP 83/48; PULSE 97; RESP 18; TEMP 37.2; O2SAT 97
[2024-10-08] MEDS: oxyCODONE HCl Immed Release 5 MG TABLET 10 MG PO ×2 (05:04→09:51)
[2024-10-08 05:39] VITALS: BP 89/55; PULSE 97; RESP 18; TEMP 37.2; O2SAT 97
[2024-10-08 07:42] VITALS: BP 95/55; PULSE 87; RESP 17; TEMP 37; O2SAT 99
--- NOTE | 2024-10-08 08:00 | HO.NEURO.PN ---
Neurosurgery Operative Note Date of Service: 10/08/24 Narrative: POD: 1 Procedure: L5-S1 ALIF Marie is a pleasant 38 y/o female who underwent L5-S1 ALIF [address] Dr. Griggs and Dr. Panda yesterday. 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 Her mother reports that she seems to be doing well overall. She is still having some low back pain but gets good relief from her current pain regimen. Mom reports that she has been up out of bed, walking around without much issue with the assistance of a walker. She does report some left posterior/lateral thigh and hip numbness since the surgery. This does not appear to be extending all the way down the thigh/ beyond the knee. She is tolerating her current diet and voiding appropriately. Afebrile, vital signs stable. Full strength 5/5 of bilateral lower extremities. Back dressings have some staining without signs of hematoma. Anterior incision site is closed with no signs of staining on Steri-Strip. No active sanguineous drainage. Area is dry. Plan: Dr. Griggs would like to have a CT scan of the lumbar spine completed today to rule out any hardware complication that may be contributing to the numbness that the patient is reporting on her left side. Given this, the patient is progressing as expected and doing very well in terms of her postoperative symptoms. We have a low overall suspicion of hardware complication, but would like to rule this out before deciding that the patient should be discharged home. She does have help at home, and is cared for by her mother. We will review her CT scan later this afternoon, and if it is unremarkable she will be discharged home later today. Segundo Griggs MD,PhD [facility]
--- NOTE | 2024-10-08 08:05 | PM.DS ---
DS: Providers Provider Date of Service: 10/08/24 Date of admission: 10/07/24 06:07 Date of discharge: 10/08/24 Primary care physician: Gorge Boykin PA-C DS: Summary Time Attestation Discharge Coordination Time (in mins): 12 Quality: Safe Use of Opioids Does Pt have an Active Cancer Diagnosis on the Problem List?: No Quality: Stroke Does the patient have a stroke diagnosis?: No Physical Exam Vital Signs: Vital Signs: Last Vital Signs Temp 98.6 F 10/08/24 07:42 Pulse 87 10/08/24 07:42 Resp 17 10/08/24 07:42 BP 95/55 L 10/08/24 07:42 Pulse Ox 99 10/08/24 07:42 O2 Del Method Room Air 10/08/24 07:42 O2 Flow Rate 4 10/07/24 11:50 BMI result Body Mass Index 23.4 Discharge Plan Discharge Anticipated Discharge Date/Time: 10/08/24 08:05 Patient Disposition: Home, Self-Care Discharge Diagnosis: s/p L5-S1 ALIF Referrals: Gorge Boykin PA-C [Primary Care Provider, Internal Medicine] - 1 Week Discharge Medications: New oxycodone 5 mg tablet See Rx Instructions .ROUTE .COMPLEX PRN (Reason: pain) Qty: 30 0RF Rx Instructions: Take 1-2 tablets by mouth every 4 hours; Partial Fill upon patient request. Continued multivitamin Tablet 1 tab PO QAM topiramate 25 mg tablet 75 mg PO BID pantoprazole 40 mg tablet,delayed release (DR/EC) 40 mg PO QAM clonidine HCl 0.1 mg tablet 0.1 mg PO BEDTIME PRN (Reason: irritability or anger) divalproex 500 mg tablet,delayed release (DR/EC) 1,000 mg PO DAILY escitalopram oxalate 20 mg tablet 20 mg PO DAILY norethindrone-ethin estradiol 1-35 mg-mcg tablet 1 tab PO DAILY ziprasidone HCl 60 mg capsule 60 mg PO BID 90 Days Qty: 180 2RF topiramate 200 mg tablet 200 mg PO BID 90 Days Qty: 180 2RF lamotrigine 200 mg tablet 200 mg PO BID 90 Days Qty: 180 2RF trazodone 50 mg tablet 100 mg PO BEDTIME PRN (Reason: Insomnia) Discharge Orders: Discharge Order (Routine); Ordered 10/08/24 Ordered By: Segundo Muniz Diet: Advance to usual diet Activity on Discharge: As tolerated Stand Alone Forms: Patient Portal Discharge page Print Language: Grenadian Activity Restrictions/Additional Instructions: After your spinal surgery we ask you to observe the following restrictions/guidelines: Activity: It is normal to feel some discomfort as you increase your activity, but that will improve with time. We ask you avoid heavy lifting or acitivities that cause pain. As a general rule, 8lbs is a safe limit for lifting right after surgery. Walk as much as you feel comfortable but not to exhaustion. You will feel extra tired the first few days after surgery. Stay well hydrated. It is OK to walk up and down stairs You may return to driving when you are off narcotics (such as vicodin, oxycodone, dilaudid, etc), and you are back to normal functional capacity. If you have any concerns please check with office before driving. Return to work is specific to each patient and each surgery, so please speak with your doctor/PA at first follow up. Please bring paperwork such as FMLA at that time if you need it filled out. Medications: We recommend you take 1,000mg Tylenol every 8 hours for the first few weeks after surgery, if you do not have any liver issues and can tolerate this medication. Do not exceed 4,000mg daily. We will give you a short supply of narcotics after surgery (usually one weeks worth). If you need more please call the office but do not use more than prescribed. You will need to give our office 48 hours notice if you need narcotics refilled and we do not fill narcotics on weekends or evenings. If you are on a narcotic, it is a good idea to take a stool softener such as colace or senna to avoid constipation If you take blood thinner such as aspirin, Plavix, Coumadin, Effient, Eliquis etc for conditions such as Afib, DVT, Pulmonary embolus, coronary disease, stents etc please speak with your surgeon about specific details as to when you can resume these medications. You can resume NSAIDs on post op day 1 (eg: Motrin, Naproxen, etc). Follow up: Please call the office, , after surgery to arrange a 3 week follow up for wound check. Wound Care: You may remove your dressing on the first day after surgery. ?You may ?leave open to air. Please do not remove the steri strips underneath. they will fall off on their own in one week. IT IS NORMAL FOR THE WOUND TO OOZE OR BE BLOODY FOR A FEW DAYS AFTER SURGERY. ?IF THIS HAPPENS JUST PLACE NEW DRESSING OVER IT TO AVOID STAINING CLOTHES. You may shower on post op day # 1 We ask that you do not let the water soak the wound. If it does get wet, just towel dry lightly. Please do not scrub your incision or place any type of chemical/ointment on the wound. No tub baths, pools or jacuzzis for one month. If you have any leaking or redness from your wound, or fevers, please call the office. Care Plan Goals: Return to normal activity as tolerated Health Concerns: Patient has TBI, but will be cared for at home by her mother who will help manage medications and assist with ADLs Plan of Treatment: Follow-up in clinic in 2-3 weeks Assessment: POD: 1 Procedure: L5-S1 ALIMaddy Salazar is a pleasant 38 y/o female who underwent L5-S1 ALIF with Dr. Griggs and Dr. Panda yesterday. 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 Her mother reports that she seems to be doing well overall. She is still having some low back pain but gets good relief from her current pain regimen. Mom reports that she has been up out of bed, walking around without much issue with the assistance of a walker. She does report some left posterior/lateral thigh and hip numbness since the surgery. This does not appear to be extending all the way down the thigh/ beyond the knee. She is tolerating her current diet and voiding appropriately. Afebrile, vital signs stable. Full strength 5/5 of bilateral lower extremities. Back dressings have some staining without signs of hematoma. Anterior incision site is closed with no signs of staining on Steri-Strip. No active sanguineous drainage. Area is dry. Plan: Dr. Griggs would like to have a CT scan of the lumbar spine completed today to rule out any hardware complication that may be contributing to the numbness that the patient is reporting on her left side. Given this, the patient is progressing as expected and doing very well in terms of her postoperative symptoms. We have a low overall suspicion of hardware complication, but would like to rule this out before deciding that the patient should be discharged home. She does have help at home, and is cared for by her mother. We will review her CT scan later this afternoon, and if it is unremarkable she will be discharged home later today. Segundo Griggs MD,PhD [facility] Addenda: The CT scan was complete and reviewed by the attending neurosurgeon Dr. Griggs. There is no obvious surgical hardware complication. The patient is cleared for discharge home.
--- NOTE | 2024-10-08 08:32 | HO.POSTANES ---
Post Anesthesia Evaluation Post Anesthesia Evaluation Date of Service: 10/08/24 Vital Signs: Vital Signs Temp Pulse Resp BP Pulse Ox O2 Del Method 10/08/24 07:42 98.6 F 87 17 95/55 L 99 Room Air 10/08/24 05:39 98.9 F 97 18 89/55 L 97 Room Air 10/08/24 00:04 98.9 F 97 18 83/48 L 97 Room Air Anesthesia: General Mental Status: Awake Pain Control: Satisfactory Nausea/Vomiting: None Hydration: Adequate Anesthesia-Related Issues: No Anes. Related Issues
--- NOTE | 2024-10-08 09:43 | MHC.CM.PN ---
pt lives with her mother who is her guardian pt will have own trabsportaion home [facility] and has additional assist at homem4 x weekly dc plan home
--- NOTE | 2024-10-08 10:24 | MHC.CM.PN ---
pt dcd home self care
--- NOTE | 2024-10-08 11:50 | PC.NURSE ---
Discharge instructions and discharge preparation reviewed and performed with patient and mom by gas charger Cassie.
== END 2024-10-08 11:30 | disposition home or self-care (01) | DRG 451 ==
LOC: HO.SSSA 06:13 → HO.S3 13:18
PROVIDERS: Nurse Practitioner; Admitting Provider Neurological Surgery; PCP Physician Assistant; Visit Provider Neurological Surgery
PROC: 0SG30A0 Fusion of Lumbosacral Joint with Interbody Fusion Device, Anterior Approach, Anterior Column, Open Approach (ICD-10-PCS; principal; 2024-10-07 07:30)
DX: M43.17 Spondylolisthesis, lumbosacral region (principal); M54.17 Radiculopathy, lumbosacral region; G40.909 Epilepsy, unspecified, not intractable, without status epilepticus; Z87.820 Personal history of traumatic brain injury; Z79.899 Other long term (current) drug therapy
CPT/HCPCS: 36415; 72131; 74018; 80048; 81025; 85027; 86850; 86900; 86901; 97162; C1713; C1889; J0131; J0690; J1100; J1171; J1885; J2003; J2250; J2371; J2405; J2704; J3010; L8699

== ENCOUNTER → 2024-10-07 06:07 | Outpatient (BNV) | payer MEDICARE, MEDICAID, SELFPAY | PROVIDERS: Admitting Provider Neurological Surgery; PCP Physician Assistant; Visit Provider Surgery | DX: Z48.89 Encounter for other specified surgical aftercare (principal) | CPT/HCPCS: 99024; 99499 ==

== ENCOUNTER 2024-10-13 15:17 | Outpatient (AMB) | payer MEDICARE, MEDICAID, SELFPAY ==
--- NOTE | 2024-10-13 15:26 | MHC.PC.OV ---
Vital Signs 10/13/24 15:27 Height 5 ft 5 in Weight 143 lb 4.807 oz BMI 23.8 BP 102/52 L Blood Pressure Location Lt brachial Position Sitting Pulse 95 Pulse Source Pulse Oximeter Pulse Oximetry (%) 100 Oxygen Delivery Method Room Air Intake Visit Reasons: [facility] s/p L5-S1 d/c on 10/08 Blacksmith Assistant Required: No Accompanied by: Mother Allergies No Known Allergies (No Known Allergies*) Allergy (Verified 10/13/24 15:31) Medication List - Last Reconciled 10/13/24 by Yamilka Caballero PA-C clonidine HCl 0.1 mg PO BEDTIME PRN divalproex 1,000 mg PO DAILY escitalopram oxalate 20 mg PO DAILY lamotrigine 200 mg PO BID 90 days multivitamin 1 tab PO QAM norethindrone-ethin estradiol 1-35 mg-mcg 1 tab PO DAILY oxycodone Take 1-2 tablets by mouth every 4 hours; Partial Fill upon patient request. pantoprazole 40 mg PO QAM topiramate 75 mg PO BID topiramate 200 mg PO BID 90 days trazodone 100 mg PO BEDTIME PRN ziprasidone HCl 60 mg PO BID 90 days Tobacco use date assessed: 10/13/24 Dental Screening Dental Screen Date: 10/13/24 HPI [facility] s/p L5-S1 d/c on 10/08 HPI Details 38-year-old female with past medical history of seizure disorder, bipolar disorder, GERD last seen 05/2024 by LAURENCE coming in for hospital discharge follow up.? In review of the notes, patient was seen in [facility] 10/07/2024 for L5-S1 ALIF with Dr. Barragan she is doing well postoperatively and hospital course was uncomplicated.? Discharged home 10/08/2024 with instructions to follow up with her surgeon in 2-3 weeks as well as given wound care instructions. Presenting with postoperative leg pain. The leg pain began following recent surgery and is characterized by numbness and increased pain upon standing or movement. The pain has progressively worsened, affecting daily activities such as showering and standing for extended periods. A CAT scan was performed post-surgery, revealing swelling around the nerve, but no complications with the surgical hardware. The patient has not experienced fever, nausea, or vomiting, reducing the likelihood of infection. The patient reports numbness and pain radiating from the back to the leg, suggesting possible nerve irritation. Incision sites appear well-healed with no signs of infection or drainage. [facility] Medical History Back pain Static encephalopathy Bipolar disorder Seizure disorder Learning disability GERD (gastroesophageal reflux disease) Surgical History History of bunionectomy Family History Mother Lung cancer Social History Household Members: Family Household Members Other:: mother Housing: House Are you a primary child day care center worker to a significant other at home: No Do you presently have visiting nurse or other home services: No Alcohol intake: never Comment: mom in room at all times. Patient Tobacco Use Status: Never used Tobacco e-Cigarette/Vaping Use: Never Used service: No Current occupational status: disabled Current occupation: [employer] Cognitive needs: No Hearing needs: No Vision needs: Yes Questionnaire Thrive Questionnaire Date Thrive assessed: 10/13/24 AHSAN-7 AMB Questionnaire AHSAN-7 Date AHSAN - 7 assessed: 10/13/24 Source: Developed by Drs. Abel Roman, Rhona Villa, Moe Orozco and colleagues, with an educational sharda from [employer]. Review of Systems Const Denies body aches, Denies chills, Denies fever(s), Denies headache(s) and Denies poor appetite Eyes Reports no additional complaints ENT Denies dysphagia, Denies dizziness, Denies headache(s) and Denies odynophagia Card Denies chest pain, Denies syncope, Denies edema, Denies irregular heart rhythm, Denies lightheadedness and Denies dyspnea Resp Denies cough and Denies dyspnea GI Denies abdominal pain, Denies constipation, Denies dysphagia, Denies diarrhea, Denies nausea, Denies odynophagia and Denies vomiting Reports no additional complaints Musc Reports no additional complaints and Denies abnormal gait Skin/Breast Reports system reviewed and no additional complaints, except as documented Neuro Denies abnormal gait, Denies dizziness, Denies syncope and Denies headache(s) Psych Reports no additional complaints Physical exam (Primary Care) Vital Signs: Last Vital Signs Pulse 95 10/13/24 15:27 BP 102/52 L 10/13/24 15:27 Pulse Ox 100 10/13/24 15:27 Oxygen Delivery Method Room Air 10/13/24 15:27 BMI result Body Mass Index 23.8 Tobacco/Smoking Status: Tobacco use Status Tobacco use date assessed 10/13/24 10/13/24 15:32 Patient Tobacco Use Status Never used Tobacco 10/13/24 15:30 e-Cigarette/Vaping Use Never Used 10/13/24 15:30 Thrive Assessment: Date of Thrive Assessment Date Thrive assessed 10/13/24 10/13/24 15:32 Const General: cooperative, healthy appearing, comfortable and no acute distress Orientation/consciousness: patient oriented x3 HENMT Head: Yes normocephalic Ears: hearing grossly normal bilaterally General nose exam: Normal external nose present Eyes General: appearance normal, both eyes and all related structures Conjunctivae: conjunctivae normal Neck Neck: Yes full ROM and Yes no lymphadenopathy Resp Effort & Inspection: normal respiratory effort Auscultation: clear to auscultation bilaterally, no crackles, no rales, no rhonchi and no wheezes Cardio Rate: regular rate Rhythm: regular rhythm Skin General skin exam: no rashes or lesions noted Full body images:  1. Incision site clean dry and intact without evidence of infection with Steri-Strips in place 2. Incision site clean dry and intact without evidence of infection no overlying Steri-Strips 3. Incision site clean dry and intact without evidence of infection few overlying Steri-Strips Neuro Other: Bilateral lower extremities with intact 5/5 strength, sensation and pulses. General: patient oriented x3 Gait exam (Neuro): Normal gait present Extrem Other: Tenderness to palpation of entirety of left leg General: Yes normal to inspection, Yes full ROM and No edema Psych Affect: normal affect Attitude: cooperative Insight: Good insight present (Psych) Judgement: Good judgement present (Psych) Coding Level of Care Code TCM Mod MDM <= 7 Days Diagnoses Spondylolisthesis, lumbar region M43.16 Spondylosis of lumbar spine M47.816 Assessment & Plan Assessment & Plan (1) Spondylolisthesis, lumbar region: Code(s): M43.16 - Spondylolisthesis, lumbar region Category: Medical Plan: Patient is postop day 6 from L5-S1 ALIF with Dr. Griggs. The plan involves contacting the surgeon to discuss the persistent leg pain and possible nerve irritation, as the symptoms have not improved postoperatively. The patient is advised to monitor for signs of infection, such as fever or increased swelling, and to report any new symptoms immediately. Pain management includes the use of NSAIDs, such as ibuprofen, as long as there are no contraindications like stomach ulcers or blood thinners. The patient should avoid heavy lifting and adhere to postoperative care instructions, including keeping the incision sites clean and dry. I reviewed with the patient red flag symptoms and when to present for re-evaluation. She agrees to call the surgeon tomorrow to discuss persistent left leg pain. At this time she is neurovascularly intact and there are no signs of infection at this time. Low suspicion for DVT as pain is in the entirety of the left leg and there is no swelling, redness, warmth or pain to bilateral calves (2) Spondylosis of lumbar spine: Code(s): M47.816 - Spondylosis without myelopathy or radiculopathy, lumbar region Category: Medical Plan: See above Plan This note was constructed using voice recognition software. While every effort has been made to ensure accuracy and watch case polisher, still areas may have been included sometimes these areas may affect the content or meeting of the given symptoms. Total time spent caring for the patient today was 20 minutes. This includes time spent before the visit reviewing the chart, time spent during the visit, and time spent after the visit and documentation. Patient was informed and verbally consented to the use of an ambient scribe for clinic note documentation during this visit.
[2024-10-13 15:27] VITALS: BP 102/52; PULSE 95; O2SAT 100; BMI 23.8
--- OUTSIDE RECORDS SUMMARY | 2024-10-13 15:52 | XMS_ITS | Clinical Summary ---
Author Organization [facility] Address [address] [place] [address] Care Team Providers Care Transportation Technician Name Role Phone [place]-Destiny Reece MD Primary Care Provid er Surgical History Surgery Date Site/Laterality Comments BUNIONECTOMY 2004 PROCEDURE: [place] CORRJ HLX VLGS BNCTY SESMDC W/DOUBLE OSTEOTOMY; COMMENT: right foot Medical History Medical History Date Comments Behavior disorder 03/15/2007 DX:Behavior di sorder Microcephaly (CMS/HCC V24, CMS/HCC V28) 08/01/2007 DX:Microcephaly (HCC) Anxiety 03/15/2007 DX:Anxiety Seizure disorder (CMS/HCC V2 4, CMS/HCC V28) DX:Seizure disorder (HCC); C OMMENT: followed by [facility] Neurology - Dr Gardner PTSD (post-traumatic stress disorder) 12/24/2009 DX:PTSD (post-traumatic stress disorder) Bipolar affective (CMS/HCC V 24, CMS/HCC V28) 12/24/2009 DX:Bipolar affective (HCC) Panic attacks DX:Panic attacks Family History Medical [...] 07/30/2017 07/31/2007, 09/23/1999, 11/24/1990, Additional history exists HIV Screening 02/26/2022 Hepatitis C Screening 02/26/2022 Social Influencers of Health Screening 02/26/2022 COVID-19 Vaccine ( season) 2023 Depression Screening 03/26/2024 Cervical Cancer Screening: Pap Smear 07/06/2024 07/06/2021 Influenza Vaccine (#1) 2024 3, 01/25/2012, 01/05/2011, Additional history exists HIB Vaccines Completed 11/25/1987 IPV Vaccines Completed [...] age to complete this topic Meningococcal B Vaccine Aged Out No l onger eligible based on patient's age to complete this topic Pneumococcal Vaccine: Pediatrics (0 to 5 Years) and At-Risk Patients (6 to 49 Years) Aged Out No longer eligible based [...] RESULTING AGENCY - 07/21/2021 7:35 AM EDT [id number] THINPREP PAP, IMAGED: NEGATIVE FOR SQUAMOUS INTRAEPITHELIAL [...] HIGH RISK HPV ASSAY: HIGH RISK HPV: NEGATIVE (SEROTYPES 16,18,31,33,35,39,45,51,52,56,58,59,66,68) COMPLETED ON 2021-07-07 ADEQUACY: SATISFACTORY ENDOCERVICAL/TRANSFORMATION ZONE COMPONENT PRESENT. SOURCE: THINPREP PAP HPV ANY DX: REFLEX 16 AND 18, CERVICAL, IMAGED CLINICAL INFORMATION: HPV ANY DIAGNOSIS. PAP HX NEGATIVE, [Z12.4, Z01.419] [facility]TOLOGY ORDERABLES Final Result HISTORICAL TESTING LAB RESULTING AGENCY from Last 3 Months or Most Recently Relevant to Health Maintenance Care Teams Transportation Technician Relationship Specialty Start Date End Date [place]-Destiny Reece MD PCP - General 01/21/07
== END 2024-10-13 16:24 | disposition home or self-care (01) ==
LOC: HO.HMCH 15:20
PROVIDERS: PCP Physician Assistant
DX: M43.16 Spondylolisthesis, lumbar region (principal); M47.816 Spondylosis without myelopathy or radiculopathy, lumbar region

== ENCOUNTER → 2024-10-13 15:17 | Outpatient (BNVA) | payer MEDICARE, MEDICAID, SELFPAY | PROVIDERS: PCP Physician Assistant | DX: M43.16 Spondylolisthesis, lumbar region (principal); M47.816 Spondylosis without myelopathy or radiculopathy, lumbar region | CPT/HCPCS: 99495 ==

== ENCOUNTER 2024-10-29 13:17 | Outpatient (AMB) | payer MEDICARE, MEDICAID, SELFPAY ==
--- NOTE | 2024-10-29 13:30 | A.SPINEOV_ITS ---
Intake Visit Reasons: 1st post op Intake Note: Ms. Mariscal is here today for her 1st post-op visit. Allergies No Known Allergies (No Known Allergies*) Allergy (Verified 10/13/24 15:31) Assessment & Plan Assessment & Plan (1) S/P lumbar fusion: Code(s): Z98.1 - Arthrodesis status Category: Surgical Plan Procedure: L5-S1 discectomy, arthrodesis and implantation cage through an anterior lumbar approach (ALIF) The patient is 38 y/o female who underwent L5-S1 ALIF. She comes in today for her 1st postop visit. She has some degree of could not impairment, and her mother accompanies her to this visit who helps provide the bulk of her history. Her mother states that she has done very well since his surgery, has been up, while here round, and completing her ADLs without much issue. She does occasionally get pain overnight, which they have been treating with [id number] Tylenol. She stopped the oxycodone a few days after surgery as she did not need it. They asked several questions regarding the postoperative healing course, all of which I answered to the best of my ability. No new neurological deficits. The patient ambulates well and rises from a seated position without difficulty. She uses no assistive devices to ambulate. Her posterior and lateral incision sites are closed and well healing. I would like to follow up with the patient again in 6 weeks for her 2nd postop visit. We will obtain a set of x-rays. Segundo Griggs MD,PhD [facility] Coding Level of Care Code Global (76572) Diagnoses S/P lumbar fusion Z98.1
--- OUTSIDE RECORDS SUMMARY | 2024-10-29 13:50 | XMS_ITS | Clinical Summary ---
Author Organization [facility] Address [address] [place] [address] Care Team Providers Care Electrical Superintendent Name Role Phone [place]-Destiny Reece MD Primary Care Provid er Surgical History Surgery Date Site/Laterality Comments BUNIONECTOMY 2004 PROCEDURE: [place] CORRJ HLX VLGS BNCTY SESMDC W/DOUBLE OSTEOTOMY; COMMENT: right foot Medical History Medical History Date Comments Behavior disorder 03/15/2007 DX:Behavior di sorder Microcephaly (CMS/HCC V24, CMS/HCC V28) 08/01/2007 DX:Microcephaly (HCC) Anxiety 03/15/2007 DX:Anxiety Seizure disorder (CMS/HCC V2 4, CMS/HCC V28) DX:Seizure disorder (HCC); C OMMENT: followed by [facility] Neurology - Dr Gardner PTSD (post-traumatic [...] RESULTING AGENCY - 07/21/2021 7:35 AM EDT [id number] THINPREP PAP, IMAGED: NEGATIVE FOR SQUAMOUS INTRAEPITHELIAL [...] Recently Relevant to Health Maintenance Care Teams Electrical Superintendent Relationship Specialty Start Date End Date [place] Kona-Destiny Reece MD PCP - General 01/21/07
== END 2024-10-29 13:49 | disposition home or self-care (01) ==
LOC: HO.HNS 13:18
PROVIDERS: PCP Physician Assistant; Visit Provider Physician Assistant
DX: Z98.1 Arthrodesis status (principal)
CPT/HCPCS: 99024

== ENCOUNTER → 2024-10-29 13:17 | Outpatient (BNVA) | payer MEDICARE, MEDICAID, SELFPAY | PROVIDERS: PCP Physician Assistant; Visit Provider Physician Assistant | DX: Z47.89 Encounter for other orthopedic aftercare (principal); Z98.1 Arthrodesis status | CPT/HCPCS: 99212 ==

== ENCOUNTER 2024-11-17 08:45 | Outpatient (REF) | payer MEDICARE, MEDICAID, SELFPAY ==
[2024-11-17 09:16] LABS: MANUAL DIFF FLAG NO
--- OUTSIDE RECORDS SUMMARY | 2024-11-17 09:16 | XMS_ITS | Clinical Summary ---
Author Organization [facility] Address [address] [place] [address] Care Team Providers Care Locomotive Firer Name Role Phone [place]-Destiny Reece MD Primary Care Provid er Surgical History Surgery Date Site/Laterality Comments BUNIONECTOMY 2004 PROCEDURE: [place] CORRJ HLX VLGS BNCTY SESMDC W/DOUBLE OSTEOTOMY; COMMENT: right foot Medical History Medical History Date Comments Behavior disorder 03/15/2007 DX:Behavior di sorder Microcephaly (CMS/HCC V24, CMS/HCC V28) 08/01/2007 DX:Microcephaly (HCC) Anxiety 03/15/2007 DX:Anxiety Seizure disorder (CMS/HCC V2 4, CMS/HCC V28) DX:Seizure disorder (HCC); C OMMENT: followed by [facility] Neurology - Dr Gardner PTSD (post-traumatic [...] RESULTING AGENCY - 07/21/2021 7:35 AM EDT [id number] THINPREP PAP, IMAGED: NEGATIVE FOR SQUAMOUS INTRAEPITHELIAL [...] Recently Relevant to Health Maintenance Care Teams Locomotive Firer Relationship Specialty Start Date End Date [place]-Destiny Reece MD PCP - General 01/21/07
--- OUTSIDE RECORDS SUMMARY | 2024-11-17 09:16 | XMS_ITS | Clinical Summary ---
Author Organization [facility] Address [address] [place] [address] Care Team Providers Care Cvt Rn Name Role Phone Unavailable Primary Care Provider Unavailabl e Encounters Date Type Department Care Team Description 10/01/2024 1:00 PM EDT Office Visit [facility] [place] [address] [place] [id number] Trey Choi MD Degeneration of lumbar intervertebral disc (Primary Dx) 09/30/2024 Telephone [facility] [place] [address] [place] [phone] Destiny Jordan from Last 3 Months Social History Tobacco Use Types Packs/Day Years Used Date Smoking Tobacco: Never Assessed Comments Unknown Sex and Gender Information Value Date Recorded Sex Assigned at Not on file Legal Sex Female 9:53 AM EDT Gender Identity Not on file Sexual Orientation Not on file Plan of Treatment Health Maintenance Due Date Last Done Comments Influenza Vaccine (#1) 2024 3, 01/25/2012, 01/05/2011, Additional history exists Hepatitis B Vaccine Completed 06/19/1997, 02/16/1997, 01/15/1997 Pneumococcal Vaccine: Peds (0 to 5 Years) and At-Risk Patients (6 to 49 Years) Aged Out No longer eligi ble based on patient's age to complete this topic Insurance Medicare Medicaid [place]
[2024-11-17 09:51] LABS: Hematocrit 37.9 % (37.0-47.0); Hemoglobin 12.1 g/dl (12.0-16.0); Imm Gran Abs Auto 0.01 X10*3/uL (0.00-0.03); Imm Gran Pct Auto 0.3 % (0.0-0.4); Lymphocytes Absolute Auto 1.5 X10*3/uL (1.2-4.9); Mean Corpuscular HGB Conc 31.9 g/dl (31.0-35.0); Mean Corpuscular Hemoglobin 33.1 pg (27.0-33.0); Mean Corpuscular Volume 103.6 fL (80.0-98.0); NRBC Abs Auto 0.000 X10*3/uL (0.0-0.012); NRBC Pct Auto 0.0 /100WBC (0.0-0.2); Platelet Count 162 X10*3/uL (160-400); Red Blood Count 3.66 X10*6/uL (4.20-5.50); White Blood Count 3.4 X10*3/uL (4.8-10.8)
[2024-11-17 09:57] LABS: Hemoglobin A1C 81.4071 umol/L; Total Hemoglobin (HGBA1C) 3185.2051 umol/L
[2024-11-17 10:20] LABS: Alanine Aminotransferase 9 U/L (0-31); Albumin Level 4.0 g/dL (3.5-5.0); Alkaline Phosphatase 56 U/L (39-117); Anion Gap 11 (12-20); Aspartate Amino Transferase 16 U/L (5-31); Blood Urea Nitrogen 16 mg/dL (9-16); Calcium 8.7 mg/dL (8.4-10.2); Carbon Dioxide 22 mmol/L (22-29); Chloride 114 mmol/L (96-108); Estimated Glomerular Filt Rate > 60; Potassium 4.1 mmol/L (3.3-5.1); Sodium 143 mmol/L (135-145); Total Protein 6.4 g/dL (6.5-8.0)
== END 2024-11-17 08:46 | disposition home or self-care (01) ==
LOC: HO.LAB 08:45
PROVIDERS: Absent Provider Nurse Practitioner Psychiatric/Mental Health; PCP Physician Assistant; Visit Provider Physician Assistant
DX: F73 Profound intellectual disabilities (principal); F31.9 Bipolar disorder, unspecified
CPT/HCPCS: 36415; 80053; 80164; 82248; 83036; 84146; 85025

== ENCOUNTER 2024-12-11 08:29 | Outpatient (REF) | payer MEDICARE, MEDICAID, SELFPAY ==
--- NOTE | ~2024-12-11 | XR_ITS ---
EXAMINATION: XR LUMBAR SPINE 4 OR MORE VIEWS HISTORY: Z98.1 - Arthrodesis status COMPARISON: Comparison is made with the prior examination dated 03/03/2024. FINDINGS: AP, and neutral, flexion, and extension lateral views of the lumbar spine are submitted. Osseous mineralization is normal. In the interval since the prior study, the patient is status post posterior fusion of L5 and S1 with pedicle screws, spinal stabilization rods, and an intervertebral spacer. Grade II spondylolisthesis at this level persists. There is no abnormal motion with flexion or extension. The vertebral bodies maintain normal height. The intervertebral disc spaces at the remaining levels are preserved. The visualized paraspinal soft tissues are unremarkable. XR/XR lumbar spine 4V min IMPRESSION: Status post posterior fusion of L5 and S1 persistent grade II spondylolisthesis. There is no abnormal motion with flexion or extension. Electronically signed by: Abel Purvis MD 12/11/2024 09:12 AM EDT
--- OUTSIDE RECORDS SUMMARY | 2024-12-12 09:03 | XMS_ITS | Clinical Summary ---
Author Organization [facility] Address [address] [place] [address] Care Team Providers Care Renovator Machine Operator Name Role Phone [place]-Destiny Reece MD Primary Care Provid er Surgical History Surgery Date Site/Laterality Comments BUNIONECTOMY 2004 PROCEDURE: [place] CORRJ HLX VLGS BNCTY SESMDC W/DOUBLE OSTEOTOMY; COMMENT: right foot Medical History Medical History Date Comments Behavior disorder 03/15/2007 DX:Behavior di sorder Microcephaly (CMS/HCC V24, CMS/HCC V28) 08/01/2007 DX:Microcephaly (HCC) Anxiety 03/15/2007 DX:Anxiety Seizure disorder (CMS/HCC V2 4, CMS/HCC V28) DX:Seizure disorder (HCC); C OMMENT: followed by [facility] Neurology - Dr Gardner PTSD (post-traumatic [...] 2024 3, 01/25/2012, 01/05/2011, Additional history exists RSV Immunization Adult Patients (1 - 1-dose 75+ series) 2060 HIB Vaccines Completed 11/25/1987 IPV Vaccines Completed [...] RESULTING AGENCY - 07/21/2021 7:35 AM EDT [id number] THINPREP PAP, IMAGED: NEGATIVE FOR SQUAMOUS INTRAEPITHELIAL [...] Recently Relevant to Health Maintenance Care Teams Renovator Machine Operator Relationship Specialty Start Date End Date Martha-Destiny Reece MD PCP - General 01/21/07
--- OUTSIDE RECORDS SUMMARY | 2024-12-12 09:04 | XMS_ITS | Clinical Summary ---
Author Organization [facility] Address [address] [place] [address] Care Team Providers Care Night Worker Name Role Phone Unavailable Primary Care Provider Unavailabl e Encounters Date Type Department Care Team Description 10/01/2024 1:00 PM EDT Office Visit [facility] [address] [place] [phone] Trey Choi MD Degeneration of lumbar intervertebral disc (Primary Dx) 09/30/2024 Telephone [facility] [address] [place] [phone] Destiny Jordan from Last 3 Months Social [...]
== END 2024-12-11 08:30 | disposition home or self-care (01) ==
LOC: HO.HOSX 08:29
PROVIDERS: Visit Provider Physician Assistant
DX: Z00.00 Encounter for general adult medical examination without abnormal findings (principal); F81.9 Developmental disorder of scholastic skills, unspecified; F31.62 Bipolar disorder, current episode mixed, moderate; G40.909 Epilepsy, unspecified, not intractable, without status epilepticus; B37.2 Candidiasis of skin and nail; Z98.1 Arthrodesis status
CPT/HCPCS: 72110; 96127; 99212; 99395

== ENCOUNTER 2024-12-11 08:44 | Outpatient (AMB) | payer MEDICARE, MEDICAID, SELFPAY ==
--- NOTE | 2024-12-11 08:56 | A.SPINEOV_ITS ---
Intake Visit Reasons: 2nd post op with Xrays Intake Note: Ms. Mariscal is here today for her 2nd post op with xrays. Driving Instructor Required: No Allergies No Known Allergies (No Known Allergies*) Allergy (Verified 12/11/24 08:57) Assessment & Plan Assessment & Plan (1) S/P lumbar fusion: Code(s): Z98.1 - Arthrodesis status Category: Surgical Plan Procedure: L5-S1 ALIF Marie is a pleasant 39-year-old female who comes in today for her 2nd postoperative visit after having a L5-S1 ALIF completed by Dr. Griggs. She has done remarkably well since her last office visit. Her mother accompanies her to this visit helps provide some history. Mom states that Marie has essentially been back to regular activity. She is not taking any pain medications, and is reporting no day to day pain. No need for wsec-fad-xcbtnsi or prescription pain medication use. She has been lifting normally, and her activity has been normal. I reviewed the patient's x-ray imaging during this visit which shows stable placement of the surgical construct with no changes from fluoroscopy. No new neurological deficits. The patient ambulates well and rises from a seated position without difficulty. I would like to follow up with the patient again in 1 year for a subsequent postoperative visit. I will place order for a CT scan to be completed 10 months out from surgery. Segundo Griggs MD,PhD [facility] Orders: Orders XR lumbar spine 4V min Today Z98.1 - Arthrodesis status CT lumbar spine wo IV con 08/03/25 Z98.1 - Arthrodesis status Coding Level of Care Code Global (98427) Diagnoses S/P lumbar fusion Z98.1
--- OUTSIDE RECORDS SUMMARY | 2024-12-11 10:01 | XMS_ITS | Clinical Summary ---
Author Organization [facility] Address [address] [place] [address] Care Team Providers Care Environmental Education Specialist Name Role Phone [place]-Destiny Reece MD Primary Care Provid er Surgical History Surgery Date Site/Laterality Comments BUNIONECTOMY 2004 PROCEDURE: [place] CORRJ HLX VLGS BNCTY SESMDC W/DOUBLE OSTEOTOMY; COMMENT: right foot Medical History Medical History Date Comments Behavior disorder 03/15/2007 DX:Behavior di sorder Microcephaly (CMS/HCC V24, CMS/HCC V28) 08/01/2007 DX:Microcephaly (HCC) Anxiety 03/15/2007 DX:Anxiety Seizure disorder (CMS/HCC V2 4, CMS/HCC V28) DX:Seizure disorder (HCC); C OMMENT: followed by [facility] Neurology - Dr Gardner PTSD (post-traumatic [...] 02/26/2022 Social Influencers of Health Screening 02/26/2022 Depression Screening 03/26/2024 Cervical Cancer Screening: Pap Smear 07/06/2024 07/06/2021 COVID-19 Vaccine ( season) 2024 Influenza Vaccine (#1) 2024 3, 01/25/2012, 01/05/2011, [...] RESULTING AGENCY - 07/21/2021 7:35 AM EDT [id number] THINPREP PAP, IMAGED: NEGATIVE FOR SQUAMOUS INTRAEPITHELIAL [...] Recently Relevant to Health Maintenance Care Teams Environmental Education Specialist Relationship Specialty Start Date End Date [place]-Destiny Reece MD PCP - General 01/21/07
--- OUTSIDE RECORDS SUMMARY | 2024-12-11 10:01 | XMS_ITS | Clinical Summary ---
Author Organization [facility] Address [address] [place] [address] Care Team Providers Care Health Plan Manager Name Role Phone Unavailable Primary Care Provider Unavailabl e Encounters Date Type Department Care Team Description 10/01/2024 1:00 PM EDT Office Visit [facility] [address] [place] [phone] Trey Choi MD Degeneration of lumbar intervertebral disc (Primary Dx) 09/30/2024 Telephone [facility] [address] [phone] Destiny Jordan from Last 3 Months Social [...]
== END 2024-12-11 09:23 | disposition home or self-care (01) ==
LOC: HO.HNS 08:45
PROVIDERS: PCP Physician Assistant; Visit Provider Physician Assistant
DX: Z98.1 Arthrodesis status (principal)
CPT/HCPCS: 99024

== ENCOUNTER → 2024-12-11 08:46 | Outpatient (BNV) | payer MEDICARE, MEDICAID, SELFPAY | PROVIDERS: Visit Provider Radiology Diagnostic Radiology | DX: Z98.1 Arthrodesis status (principal) | CPT/HCPCS: 72110 ==

== ENCOUNTER 2024-12-11 09:26 | Outpatient (AMB) | payer MEDICARE, MEDICAID, SELFPAY ==
--- NOTE | 2024-12-11 09:47 | A.OFFPC_ITS ---
Vital Signs 12/11/24 09:49 Height 5 ft 5 in Weight 142 lb 2 oz BMI 23.6 BP 120/60 Blood Pressure Location Lt brachial Position Sitting Pulse 69 Pulse Source Pulse Oximeter Temp 97.1 F Temp Source Temporal Artery Scan Pulse Oximetry (%) 98 Oxygen Delivery Method Room Air Intake Visit Reasons: pe Intake Note: Patient is here today for a physical. Orthotist Required: No Assembler Wet Wash: Present Accompanied by: Mother Allergies No Known Allergies (No Known Allergies*) Allergy (Verified 12/11/24 10:17) Medication List - Last Reconciled 12/11/24 by Gorge Boykin PA-C clonidine HCl 0.1 mg PO BEDTIME PRN divalproex 1,000 mg PO DAILY escitalopram oxalate 20 mg PO DAILY lamotrigine 200 mg PO BID 90 days multivitamin 1 tab PO QAM norethindrone-ethin estradiol 1-35 mg-mcg 1 tab PO DAILY pantoprazole 40 mg PO QAM topiramate 75 mg PO BID topiramate 200 mg PO BID 90 days trazodone 100 mg PO BEDTIME PRN ziprasidone HCl 60 mg PO BID 90 days Tobacco use date assessed: 12/11/24 Dental Screening Dental Screen Date: 10/13/24 HPI pe HPI Details Patient is a 39-year-old female here today a routine annual physical ? Pmhx? Sz disorder , Bipolar disorder, GERD, spondylosis of lumbar spine. .. Recently underwent a lumbar spinal fusion, doing well. She has been a bit more mobile ---concern> The patient reports a long-standing issue with onychomycosis, which has persisted for at least 11 years. Previous treatments have included exwn-ehg-dgkikff antifungal medications and prescription creams, but the condition has not resolved. The patient also experiences athlete's foot, which is managed with topical treatments. .. learing disability: Continues to have social work msw coming to home. Mother is very supportive. .. Lumbar spine muscular issue-- > status post lumbar fusion and doing well. .. Sz disorder: Sees [facility] Neurologist ( Dr de la torre),? has not had a seizure in 6 years. Continues on multiple antiseizure medications. [facility] Neurology we like PCP now to prescriber seizure medications and continue following divalproex level. .. Bipolar disorder: Is seeing a therapist Weekly, was seeing Dr Dominguez in [place]. Family reports patient has mood has been very stable with mood stabilization medication BLEMISH REMOVER: sees BLEMISH REMOVER at [place] , has gotten PAP last summer. .. Vaccine:? Up-to-date with tetanus, UTD with COVID Vaccine.? ?Declines flu vaccine Laboratory Tests 09/23/19 03/01/20 06/28/20 12:55 08:05 07:25 WBC 2.9 L RBC 3.51 L Hct 36.7 L MCV 104.5 H Creatinine 0.71 TSH Prolactin Valproic Acid 44.6 L 67.4 12/01/21 09/24/24 11/17/24 09:28 13:10 09:13 WBC RBC 3.66 L Hct MCV 101.8 H 102.2 H 103.6 H Creatinine TSH 2.15 Prolactin 7.3 Valproic Acid 57.3 PFSH Medical History Back pain Static encephalopathy Bipolar disorder Seizure disorder Learning disability GERD (gastroesophageal reflux disease) Surgical History History of spinal surgery History of bunionectomy Family History Mother Lung cancer Social History Household Members: Family Household Members Other:: mother Housing: House Are you a primary intensive care unit nurse to a significant other at home: No Do you presently have visiting nurse or other home services: No Alcohol intake: never Comment: mom in room at all times. Patient Tobacco Use Status: Never used Tobacco e-Cigarette/Vaping Use: Never Used Second Hand Smoke Exposure: No service: No Current occupational status: disabled Current occupation: [employer] Cognitive needs: No Hearing needs: No Vision needs: Yes (Glasses) Questionnaire PHQ-9 Over the last 2 weeks, how often have you been bothered by any of the following problems? 1. Little interest or pleasure in doing things: not at all 2. Feeling down, depressed, or hopeless: not at all 3. Trouble falling or staying asleep, or sleeping too much: several days 4. Feeling tired or having little energy: several days 5. Poor appetite or overeating: not at all 6. Feeling bad about yourself - or that you are a failure or have let yourself or your family down: not at all 7. Trouble concentrating on things, such as reading the newspaper or watching television: not at all 8. Moving or speaking so slowly that other people could have noticed. Or the opposite - being so fidgety or restless that you have been moving around a lot more than usual: not at all 9. Thoughts that you would be better off or of hurting yourself in some way: not at all Total score: 2 Depression Screening Interpretation: Positive Depression Screening Follow-up: Existing condition and In treatment Depression Screening Done: Yes 58961 - PHQ-9 Billing: Yes Source: Developed by Drs. Abel Roman, Rhona Villa, Moe Orozco and colleagues, with an educational sharda from [employer]. Thrive Questionnaire Date Thrive assessed: 05/27/24 I am a: Parent/Caregiver What is your living situation today?: I have a steady place to live Within the past 12 months, did the food you bought not last and you didn't have the money to get more?: Never true Within the past 12 months, did you worry whether your food would run out before you got money to buy more?: Never true Do you have trouble paying for medicines?: No Do you have trouble getting transportation to medical appointments?: No Do you have trouble paying your heating and electricity bill?: No Do you have trouble taking care of your child, family member or friend?: No Do you have trouble with day-to-day activities such as bathing, preparing meals, shopping, managing finances, etc.?: No Are you currently unemployed and looking for a job?: No Are you interested in more education?: No Please select the resources that you would like help with: None Currently or been in a relationship where the following occur: No concerns r eported THRIVE Score: 0 AUDIT C Alcohol Use Questionnaire (AUDIT-C) 1. How often do you have a drink containing alcohol?: Never Total Score: 0 AHSAN-7 AMB Questionnaire AHSAN-7 Date AHSAN - 7 assessed: 10/13/24 Feeling nervous, anxious, or on edge: 0 = Not at all Not being able to stop or control worryin = Not at all Worrying too much about different things: 0 = Not at all Trouble relaxin = Not at all Being so restless that it is hard to sit still: 0 = Not at all Becoming easily annoyed or irritable: 1 = Several days Feeling afraid as if something awful might happen: 0 = Not at all Total AHSAN-7 score (0-4 normal; 5-9 mild; 10-14 moderate; 15-21 severe): 1 Source: Developed by Drs. Abel Roman, Rhona Villa, Moe Orozco and colleagues, with an educational sharda from [employer]. AHSAN-7 Assessment Billing AHSAN-7 Assessment Tool: AHSAN-7 Assessment 09169 Review of Systems Const Denies body aches, Denies chills, Denies excessive sweating, Denies fatigue, Denies fever(s) and Denies headache(s) Eyes Denies blurry vision ENT Denies dysphagia, Denies vertigo, Denies dizziness, Denies headache(s), Denies hearing loss and Denies tinnitus Card Denies chest pain, Denies chest pain with activity, Denies syncope, Denies irregular heart rhythm and Denies dyspnea Resp Denies chest congestion, Denies cough, Denies hemoptysis, Denies dyspnea and Denies wheezing GI Denies abdominal pain, Denies melena, Denies hematochezia, Denies coffee ground emesis, Denies dysphagia, Denies diarrhea, Denies nausea and Denies vomiting Denies urinary frequency, Denies dysuria, Denies urinary hesitancy and Denies urinary urgency Musc Denies arthralgias, Denies limited range of motion, Denies muscle cramps and Denies muscle weakness Skin/Breast Denies rash and Denies skin ulcer Neuro Denies Abnormal speech present, Denies confusion, Denies vertigo, Denies dizziness, Denies syncope, Denies headache(s), Denies memory loss and Denies seizure-like activity Psych Denies anxiety, Denies confusion, Denies depression, Denies memory loss, Denies panic attacks and Denies paranoia Endo Denies excessive sweating, Denies fatigue, Denies flushing, Denies polydipsia and Denies polyuria Aller/Immun Denies wheezing Physical exam (Primary Care) Vital Signs: Last Vital Signs Temp 97.1 F 12/11/24 09:49 Pulse 69 12/11/24 09:49 BP 120/60 12/11/24 09:49 Pulse Ox 98 12/11/24 09:49 Oxygen Delivery Method Room Air 12/11/24 09:49 BMI result Body Mass Index 23.6 Tobacco/Smoking Status: Tobacco use Status Tobacco use date assessed 12/11/24 12/11/24 09:52 Patient Tobacco Use Status Never used Tobacco 12/11/24 09:47 e-Cigarette/Vaping Use Never Used 12/11/24 09:47 PHQ-9: PHQ-9 Score PHQ-9: Total score 2 12/11/24 09:52 Depression Screening Interpretation: Positive Depression Screening Follow-up: Existing condition and In treatment Thrive Assessment: Date of Thrive Assessment Date Thrive assessed 05/27/24 12/11/24 09:47 Currently or been in a relationship where the following occur: No concerns reported Const General: cooperative, comfortable, no acute distress, alert and awake; No confusion Orientation/consciousness: oriented to person, oriented to place, patient oriented x3 and No confusion HENMT Head: Yes normocephalic Ears: external ears normal and TM's normal bilaterally Face and sinus: No sinus tenderness Mouth: Normal oral and palatal mucosa present and tongue normal Teeth and gingiva: dentition normal and gingiva normal Throat: Yes posterior oropharynx normal, Yes tonsils normal and Yes uvula midline Eyes Conjunctivae: conjunctivae normal Sclerae: sclerae normal Pupils: Equal, round and reactive pupils present EOM: EOMs intact bilaterally Direct Ophthalmoscopy: No no photophobia Neck Neck: Yes no lymphadenopathy, No tender and Yes no JVD Thyroid: Thyroid normal Carotids: no bruits Chest Chest palpation & inspection: no tenderness Resp Effort & Inspection: normal respiratory effort, no audible wheezes, not labored and no stridor Auscultation: no crackles, no rales, no rhonchi and no wheezes Cardio Jugular venous distension: no JVD Rate: regular rate, not bradycardic and not tachycardic Rhythm: regular rhythm Bruits: no carotid bruits Peripheral pulses: Peripheral pulses 2+ throughout GI Inspection: Yes normal to inspection, No abdominal wall ecchymosis and No visible herniation Palpation (GI): Soft to palpation, nontender, no guarding, not rigid and No hepatosplenomegaly present Auscultation: normoactive bowel sounds General: Yes no CVA tenderness Back/Spine/Pelvis Back: no CVA tenderness and No back tenderness Cervical Spine: cervical ROM normal Thoracic/Lumbar Spine: thoracic and lumbar spine normal to inspection, straight leg raise negative bilaterally, No thoraco-lumbar ROM limited and No lumbar spinal tenderness Skin Lesions: no lesions Rashes: no rashes Wounds: no wounds Neuro General: oriented to person, oriented to place, patient oriented x3, CN's II-XI intact bilaterally and No confusion Cranial nerves: Yes Equal, round and reactive pupils present and Yes Normal accommodation reflex present Cognition (Neuro): normal cognition Speech: No Abnormal speech present Gait exam (Neuro): Normal gait present Motor exam (neuro): 5/5 motor strength present throughout Extrem Other: BILATERAL ONYCHOMYCOSIS OF TOENAILS. Right upper extremity: full ROM; no cyanosis Left upper extremity: full ROM; no cyanosis Right lower extremity: no edema Left lower extremity: no edema Psych Appearance: grossly normal Mental Status: mental status grossly normal Affect: normal affect Attitude: cooperative Thought process: Normal thought process present Coding Level of Care Code Est Pt Prev Care 18-39y(46175) Diagnoses Annual physical exam Z00.00 Learning disability F81.9 Bipolar disorder, current episode mixed, moderate F31.62 Active/Remission status: currently active Current bipolar episode type: mixed Current episode severity: moderate Seizure disorder G40.909 Mita onychomycosis B37.2 Additional Codes AHSAN-7 Assessment Billing - AHSAN-7 Assessment Tool: AHSAN-7 Assessment 24332 ([id number]) PHQ-9 - 00529 - PHQ-9 Billing: Yes ([id number]) Assessment & Plan Assessment & Plan (1) Annual physical exam: Code(s): Z00.00 - Encounter for general adult medical examination without abnormal findings Category: Medical Plan: As per HPI (2) Learning disability: Code(s): F81.9 - Developmental disorder of scholastic skills, unspecified Category: Social Hx Plan: As per HPI (3) Bipolar disorder: Code(s): F31.9 - Bipolar disorder, unspecified Category: Medical Qualifiers: Active/Remission status: currently active Current bipolar episode type: mixed Current episode severity: moderate Qualified Code(s): F31.62 - Bipolar disorder, current episode mixed, moderate Plan: Patient continues to follow psychiatrist whom manage his her mental health medication. (4) Seizure disorder: Code(s): G40.909 - Epilepsy, unspecified, not intractable, without status epilepticus Category: Medical Plan: Patient has not had a seizure in quite some time. Continues on antiepileptic medication with good effect. (5) Mita onychomycosis: Code(s): B37.2 - Candidiasis of skin and nail Category: Medical Plan: The patient has a long-standing issue with onychomycosis, persisting for over 11 years. Previous treatments have included vqmk-byh-tsoeugz antifungal medications and prescription creams, but the condition has not resolved. The plan is to consider oral antifungal therapy, with liver function monitoring due to potential hepatotoxicity. Orders: Orders Liver Panel Today B37.2 - Candidiasis of skin and nail Medications: New terbinafine HCl 250 mg PO DAILY 56 tabs 0RF 8 weeks B37.2 - Candidiasis of skin and nail ciclopirox 0.77% 1 appl topical BID 30 grams 0RF 4 weeks B35.3 - Tinea pedis, B37.2 - Candidiasis of skin and nail
[2024-12-11 09:49] VITALS: BP 120/60; PULSE 69; TEMP 36.2; O2SAT 98; BMI 23.6
== END 2024-12-11 11:05 | disposition home or self-care (01) ==
LOC: HO.HMCH 09:27
PROVIDERS: PCP Physician Assistant; Visit Provider Physician Assistant
DX: Z00.00 Encounter for general adult medical examination without abnormal findings (principal); F81.9 Developmental disorder of scholastic skills, unspecified; F31.62 Bipolar disorder, current episode mixed, moderate; G40.909 Epilepsy, unspecified, not intractable, without status epilepticus; B37.2 Candidiasis of skin and nail

== ENCOUNTER 2025-01-08 08:51 | Outpatient (REF) | payer MEDICARE, MEDICAID, SELFPAY ==
--- OUTSIDE RECORDS SUMMARY | 2025-01-08 09:43 | XMS_ITS | Clinical Summary ---
Author Organization [facility] Address [address] [place] [address] Care Team Providers Care Cafeteria Operator Name Role Phone [place]-Destiny Reece MD Primary Care Provid er Surgical History Surgery Date Site/Laterality Comments BUNIONECTOMY 2004 PROCEDURE: [place] CORRJ HLX VLGS BNCTY SESMDC W/DOUBLE OSTEOTOMY; COMMENT: right foot Medical History Medical History Date Comments Behavior disorder 03/15/2007 DX:Behavior di sorder Microcephaly (CMS/HCC V24, CMS/HCC V28) 08/01/2007 DX:Microcephaly (HCC) Anxiety 03/15/2007 DX:Anxiety Seizure disorder (CMS/HCC V2 4, CMS/HCC V28) DX:Seizure disorder (HCC); C OMMENT: followed by [facility] Neurology - Dr Gardner PTSD (post-traumatic [...] RESULTING AGENCY - 07/21/2021 7:35 AM EDT [id number] THINPREP PAP, IMAGED: NEGATIVE FOR SQUAMOUS INTRAEPITHELIAL [...] Recently Relevant to Health Maintenance Care Teams Cafeteria Operator Relationship Specialty Start Date End Date Martha-Destiny Reece MD PCP - General 01/21/07
[2025-01-08 11:22] LABS: Alanine Aminotransferase 11 U/L (0-31); Albumin Level 4.1 g/dL (3.5-5.0); Alkaline Phosphatase 48 U/L (39-117); Aspartate Amino Transferase 15 U/L (5-31); Total Protein 6.3 g/dL (6.5-8.0)
== END 2025-01-08 08:52 | disposition home or self-care (01) ==
LOC: HO.LAB 08:51
PROVIDERS: PCP Physician Assistant; Visit Provider Physician Assistant
DX: B37.2 Candidiasis of skin and nail (principal)
CPT/HCPCS: 36415; 80076